=== PATIENT | female | born 1950 | race Caucasian/White ===

== ENCOUNTER → 2018-05-04 | Outpatient (CLI) | payer MEDICARE ==
--- NOTE | 2018-05-04 16:56 | BD ---
EXAMINATION TYPE: Axial Bone Density DATE OF EXAM: 05/04/2018 COMPARISON: NONE CLINICAL HISTORY: Height: 64 Weight: 231.8 FRAX RISK QUESTIONS: Alcohol (3 or more units per day): no Family History (Parent hip fracture): yes Glucocorticoids (More than 3mos): no (Ex: prednisone, prednisolone, methylprednisolone, dexamethasone, and hydrocortisone). History of Fracture in Adulthood: no Secondary Osteoporosis: 1. Type 1 Diabetes: no 2. Hyperthyroidism: no 3. Menopause before 45: no 4. Malnutrition: no 5. Chronic liver disease: no Rheumatoid Arthritis: no Current Tobacco Use: no RISK FACTORS HISTORY OF: Family History of Osteoporosis: yes Active: yes Diet low in dairy products/other sources of calcium: no Postmenopausal woman: after age 43 sometime Lost more than 2 inches in height since high school: no MEDICATIONS: eye drops, lipitor, aspirin, tenormin Additional History: EXAM MEASUREMENTS: Bone mineral densitometry was performed using the [employer] System. Bone mineral density as measured about the Lumbar spine is: ----- L1-L4(G/cm2): 1.422 T Score Values are as follows: ----- L2: 1.4 ----- L3: 3.2 ----- L4: 1.8 ----- L1-L4: 2.0 Bone mineral density has: decreased -2.1 % since study of: 03.26.2012 Bone mineral density about the R hip (g/cm2): 0.988 Bone mineral density about the L hip (g/cm2): 0.943 T Score values are as follows: -----R Neck: -0.4 -----L Neck: -0.7 -----R Total: 0.5 -----L Total: 0.3 Bone mineral density has: decreased -2.6 % since study of: 03.26.2012 IMPRESSION: Normal (Values between +1 and -1 indicate normal bone mass). Consider repeating this study in 5 year s or sooner if there is some new clinical indication. NOTE: T-SCORE=SD OF THE YOUNG ADULT MEAN.
--- NOTE | 2018-05-09 08:31 | MM ---
Reason for exam: screening (asymptomatic). Last mammogram was performed 1 year and 1 month ago. History: Patient is postmenopausal. Took hormonal contraceptives for 4 years beginning at age 22. Physical Findings: A clinical breast exam by your physician is recommended on an annual basis and results should be correlated with mammographic findings. MG 3D Screening Mammo W/Cad Bilateral CC and MLO view(s) were taken. Prior study comparison: April 10, 2017, bilateral MG 3d screening mammo w/cad. April 08, 2016, bilateral MG 3d screening mammo w/cad. There are scattered fibroglandular densities. There are benign appearing round calcifications bilaterally. No suspicious abnormality. No significant changes when compared with prior studies. ASSESSMENT: Benign, BI-RAD 2 RECOMMENDATION: Routine screening mammogram of both breasts in 1 year.
== END | disposition home or self-care (01) ==
LOC: RADMAMWWP 08:03
PROVIDERS: ATTEND Internal Medicine
DX: Z12.31 Encounter for screening mammogram for malignant neoplasm of breast (principal); M89.9 Disorder of bone, unspecified
CPT/HCPCS: 77063; 77067; 77080

== ENCOUNTER → 2019-05-07 | Outpatient (CLI) | payer MEDICARE ==
--- NOTE | 2019-05-09 13:24 | MM ---
Reason for exam: screening (asymptomatic). Last mammogram was performed 1 year ago. History: Patient is postmenopausal. Took hormonal contraceptives for 4 years beginning at age 22. Physical Findings: A clinical breast exam by your physician is recommended on an annual basis and results should be correlated with mammographic findings. MG 3D Screening Mammo W/Cad Bilateral CC and MLO view(s) were taken. Prior study comparison: May 04, 2018, bilateral MG 3d screening mammo w/cad. April 10, 2017, bilateral MG 3d screening mammo w/cad. There are scattered fibroglandular densities. Benign appearing bilateral calcifications. No suspicious abnormality. No significant changes when compared with prior studies. ASSESSMENT: Benign, BI-RAD 2 RECOMMENDATION: Routine screening mammogram of both breasts in 1 year.
== END | disposition home or self-care (01) ==
LOC: RADMAMWWP 09:04
PROVIDERS: ATTEND Internal Medicine
DX: Z12.31 Encounter for screening mammogram for malignant neoplasm of breast (principal)
CPT/HCPCS: 77063; 77067

== ENCOUNTER → 2021-01-06 | Outpatient (CLI) | payer MEDICARE ==
--- NOTE | 2021-01-08 11:43 | MM ---
Reason for exam: screening (asymptomatic). Last mammogram was performed 1 year and 8 months ago. History: Patient is postmenopausal. Took hormonal contraceptives for 4 years beginning at age 22. Physical Findings: A clinical breast exam by your physician is recommended on an annual basis and results should be correlated with mammographic findings. MG 3D Screening Mammo W/Cad Bilateral CC and MLO view(s) were taken. XCCL view(s) were taken of the left breast. Prior study comparison: May 07, 2019, bilateral MG 3d screening mammo w/cad. May 04, 2018, bilateral MG 3d screening mammo w/cad. There are scattered fibroglandular densities. No significant changes when compared with prior studies. ASSESSMENT: Benign, BI-RAD 2 RECOMMENDATION: Routine screening mammogram of both breasts in 1 year.
== END | disposition home or self-care (01) ==
LOC: RADMAMWWP 08:09
PROVIDERS: ATTEND Family Medicine
DX: Z12.31 Encounter for screening mammogram for malignant neoplasm of breast (principal); Z79.3 Long term (current) use of hormonal contraceptives; Z78.0 Asymptomatic menopausal state
CPT/HCPCS: 77063; 77067

== ENCOUNTER 2021-02-25 10:33 | Inpatient (IN) | payer MEDICARE ==
--- NOTE | 2021-02-25 11:54 | XR ---
EXAMINATION TYPE: XR chest 1V portable DATE OF EXAM: 02/25/2021 Comparison: 03/02/2011 Clinical History: 70-year-old female cough, dizziness, Suspected COVID-19 pneumonia Findings: The cardiomediastinal silhouette, aorta, and pulmonary vasculature are within normal limits. Patchy bilateral opacities, greatest in the mid and lower lungs, right greater than left. Impression: Patchy bilateral COVID infiltrates.
[2021-02-25 11:58] LABS: Basophils % (A) 0 %; Eosinophils % (A) 0 %; HCT 42.8 % (34.0-46.0); HGB 14.9 gm/dL (11.4-16.0); Hyperchromasia Slight; Lymphocytes # (A) 0.8 k/uL (1.0-4.8); Lymphocytes % (A) 7 %; MCH 32.2 pg (25.0-35.0); MCHC 34.9 g/dL (31.0-37.0); MCV 92.5 fL (80.0-100.0); Mean Platelet Volume 7.6; Monocytes # (A) 0.7 k/uL (0-1.0); Monocytes % (A) 6 %; Neutrophils # (A) 10.3 k/uL (1.3-7.7); Neutrophils % (A) 85 %; Platelet Count 466 k/uL (150-450); Poikilocytosis Slight; RBC 4.63 m/uL (3.80-5.40); RDW 13.2 % (11.5-15.5); WBC 12.2 k/uL (3.8-10.6)
[2021-02-25 12:18] LABS: INR 1.1 (<1.2); Partial Thromboplastin Time 21.1 sec (22.0-30.0); Prothrombin Time 11.3 sec (9.0-12.0)
--- NOTE | 2021-02-25 12:31 | ED ---
General Adult HPI - General Chief complaint: Upper Respiratory Infection Stated complaint: covid+, worsening symptoms Time Seen by Provider: 02/25/21 10:45 Source: patient, RN notes reviewed, old records reviewed Mode of arrival: ambulatory Limitations: no limitations - History of Present Illness Initial comments: Patient is a 70-year-old female with history of heart disease, presenting to the emergency Department with complaints of worsening shortness of breath, fatigue. She was diagnosed with Covid last week, she's been having symptoms approximately 8-9 days. She did have a couple fevers last week but none recently. She denies history of COPD, she is a nonsmoker. Her biggest complaint is his shortness of breath, she does have a mild cough this been continuous over the past 3 weeks. Her appetite has been very low, she's been trying to drink fluids. Some mild nausea intermittently, no vomiting, no diarrhea. She denies history of blood clots, she is not on blood thinners. Patient has no further complaints at this time. Upon arrival to the ER, she is a 88% on room air, rest of vitals within normal limits. - Related Data Home Medications Medication Instructions Recorded Confirmed Albuterol Sulfate [Albuterol 2 puff INHALATION QID PRN 02/25/21 02/25/21 Sulfate Hfa] Aspirin EC [Ecotrin Low Dose] 81 mg PO HS 02/25/21 02/25/21 Atorvastatin [Lipitor] 20 mg PO HS 02/25/21 02/25/21 Flarex 0.1% Opth Solution 1 drop BOTH EYES TUTHSA 02/25/21 02/25/21 Timolol 0.5% Ophth Soln [Timoptic 1 drop BOTH EYES DAILY 02/25/21 02/25/21 0.5% Ophth Soln] atenoloL [Tenormin] 25 mg PO HS 02/25/21 02/25/21 atenoloL [Tenormin] 50 mg PO DAILY 02/25/21 02/25/21 Allergies Allergy/AdvReac Type Severity Reaction Status Date / Time Sulfa (Sulfonamide Allergy Rash/Hives Verified 02/25/21 13:14 Antibiotics) Review of Systems ROS Statement: Those systems with pertinent positive or pertinent negative responses have been documented in the HPI. ROS Other: All systems not noted in ROS Statement are negative. Past Medical History Past Medical History: Coronary Artery Disease (CAD), Eye Disorder Additional Past Medical History / Comment(s): Covid. History of Any Multi-Drug Resistant Organisms: None Reported Past Surgical History: Cholecystectomy, Heart Catheterization With Stent Past Psychological History: No Psychological Hx Reported Smoking Status: Never smoker Past Alcohol Use History: None Reported Past Drug Use History: None Reported General Exam - General Exam Comments Initial Comments: GENERAL: Patient is well-developed and well-nourished. Patient is nontoxic and in no acute distress. HEAD: Atraumatic, normocephalic. EYES: Pupils equal round and reactive to light, extraocular movements intact, sclera anicteric, conjunctiva are normal. Eyelids were unremarkable. ENT: Nares patent, oropharynx clear without exudates. Moist mucous membranes. NECK: Normal range of motion, supple without lymphadenopathy or JVD. LUNGS: Unlabored respirations, decreased sounds bilaterally, No wheezes rales or rhonchi. HEART: Regular rate and rhythm without murmurs, rubs or gallops. ABDOMEN: Soft, nontender, normoactive bowel sounds. No guarding, no rebound. No masses appreciated. MUSCULOSKELETAL: Normal extremities with adequate strength and normal range of motion, no pitting or edema. No clubbing or cyanosis. NEUROLOGICAL: Patient is alert and oriented x 3. Motor and sensory are also intact. Cranial nerves II through XII grossly intact. Symmetrical smile. Normal speech, normal gait. PSYCH: Normal mood, normal affect. SKIN: Warm, Dry, normal turgor, no rashes or lesions noted. Limitations: no limitations Course Vital Signs 02/25/21 02/25/21 10:34 11:52 Temperature 96.0 F L Pulse Rate 71 57 L Respiratory 19 18 Rate Blood Pressure 141/67 156/55 O2 Sat by Pulse 88 L 93 L Oximetry EKG Findings - EKG Comments: EKG Findings:: Normal sinus rhythm, normal ECG, no signs of acute process. Ventricular rate 64, AR interval 154, QTC 436. Medical Decision Making - Medical Decision Making Patient is a 70-year-old female with heart disease, presenting with worsening shortness of breath over the past week. She was diagnosed with Covid last week, symptoms started a few days prior. She did arrive 88% in room air, rest of vitals normal. EKG shows normal sinus rhythm. Chest x-ray shows patchy bilateral Covid infiltrates. Labs are stable. Patient will be admitted for Covid pneumonia, hypoxia. She has been comfortable on 3 L at 93%. Dr. Quezada is accepting, pulmonary on consult. Case discussed with Dr. Ortiz. - Lab Data Result diagrams: 02/25/21 11:36 02/25/21 11:36 Lab Results 02/25/21 02/25/21 02/25/21 Range/Units 11:36 11:36 11:36 WBC 12.2 H (3.8-10.6) k/uL RBC 4.63 (3.80-5.40) m/uL Hgb 14.9 (11.4-16.0) gm/dL Hct 42.8 (34.0-46.0) % MCV 92.5 (80.0-100.0) fL MCH 32.2 (25.0-35.0) pg MCHC 34.9 (31.0-37.0) g/dL RDW 13.2 (11.5-15.5) % Plt Count 466 H (150-450) k/uL MPV 7.6 Neutrophils % 85 % Lymphocytes % 7 % Monocytes % 6 % Eosinophils % 0 % Basophils % 0 % Neutrophils # 10.3 H (1.3-7.7) k/uL Lymphocytes # 0.8 L (1.0-4.8) k/uL Monocytes # 0.7 (0-1.0) k/uL Eosinophils # 0.0 (0-0.7) k/uL Basophils # 0.0 (0-0.2) k/uL Hyperchromasia Slight Poikilocytosis Slight PT 11.3 (9.0-12.0) sec INR 1.1 (<1.2) APTT 21.1 L (22.0-30.0) sec Sodium 139 (137-145) mmol/L Potassium 3.9 (3.5-5.1) mmol/L Chloride 106 (98-107) mmol/L Carbon Dioxide 25 (22-30) mmol/L Anion Gap 8 mmol/L BUN 20 H (7-17) mg/dL Creatinine 0.56 (0.52-1.04) mg/dL Est GFR (CKD-EPI)AfAm >90 (>60 ml/min/1.73 sqM) Est GFR (CKD-EPI)NonAf >90 (>60 ml/min/1.73 sqM) Glucose 110 H (74-99) mg/dL Plasma Lactic Acid Garret (0.7-2.0) mmol/L Calcium 8.9 (8.4-10.2) mg/dL Magnesium 2.1 (1.6-2.3) mg/dL Total Bilirubin 1.1 (0.2-1.3) mg/dL AST 50 H (14-36) U/L ALT 28 (4-34) U/L Alkaline Phosphatase 60 (38-126) U/L Troponin I (0.000-0.034) ng/mL C-Reactive Protein 15.0 H (<1.0) mg/dL Total Protein 5.8 L (6.3-8.2) g/dL Albumin 2.7 L (3.5-5.0) g/dL 02/25/21 02/25/21 Range/Units 11:36 11:36 WBC (3.8-10.6) k/uL RBC (3.80-5.40) m/uL Hgb (11.4-16.0) gm/dL Hct (34.0-46.0) % MCV (80.0-100.0) fL MCH (25.0-35.0) pg MCHC (31.0-37.0) g/dL RDW (11.5-15.5) % Plt Count (150-450) k/uL MPV Neutrophils % % Lymphocytes % % Monocytes % % Eosinophils % % Basophils % % Neutrophils # (1.3-7.7) k/uL Lymphocytes # (1.0-4.8) k/uL Monocytes # (0-1.0) k/uL Eosinophils # (0-0.7) k/uL Basophils # (0-0.2) k/uL Hyperchromasia Poikilocytosis PT (9.0-12.0) sec INR (<1.2) APTT (22.0-30.0) sec Sodium (137-145) mmol/L Potassium (3.5-5.1) mmol/L Chloride (98-107) mmol/L Carbon Dioxide (22-30) mmol/L Anion Gap mmol/L BUN (7-17) mg/dL Creatinine (0.52-1.04) mg/dL Est GFR (CKD-EPI)AfAm (>60 ml/min/1.73 sqM) Est GFR (CKD-EPI)NonAf (>60 ml/min/1.73 sqM) Glucose (74-99) mg/dL Plasma Lactic Acid Garret 1.7 (0.7-2.0) mmol/L Calcium (8.4-10.2) mg/dL Magnesium (1.6-2.3) mg/dL Total Bilirubin (0.2-1.3) mg/dL AST (14-36) U/L ALT (4-34) U/L Alkaline Phosphatase (38-126) U/L Troponin I 0.017 (0.000-0.034) ng/mL C-Reactive Protein (<1.0) mg/dL Total Protein (6.3-8.2) g/dL Albumin (3.5-5.0) g/dL Disposition Clinical Impression: Pneumonia due to COVID-19 virus, Hypoxia Disposition: ADMITTED IP TO THIS [facility] Condition: Stable Referrals: Abigail Morales MD [Primary Care Provider] - 1-2 days Decision Date: 02/25/21 Decision Time: 13:24
[2021-02-25 12:35] LABS: ALT 28 U/L (4-34); African American GFR (CKD) >90 (>60 ml/min/1.73 sqM); Albumin 2.7 g/dL (3.5-5.0); Anion Gap 8 mmol/L; Blood Urea Nitrogen 20 mg/dL (7-17); Calcium 8.9 mg/dL (8.4-10.2); Carbon Dioxide 25 mmol/L (22-30); Chloride 106 mmol/L (98-107); Glucose 110 mg/dL (74-99); Magnesium 2.1 mg/dL (1.6-2.3); Non-African American GFR(CKD) >90 (>60 ml/min/1.73 sqM); Sodium 139 mmol/L (137-145); Total Bilirubin 1.1 mg/dL (0.2-1.3); Total Protein 5.8 g/dL (6.3-8.2)
[2021-02-25 12:36] LABS: Potassium 3.9 mmol/L (3.5-5.1)
[2021-02-25 12:37] LABS: AST 50 U/L (14-36); Alkaline Phosphatase 60 U/L (38-126)
[2021-02-25] MEDS ORDERED: ACETAMINOPHEN TAB 325 MG TAB PO PRN (13:20)
[2021-02-25] MEDS ORDERED: IBUPROFEN 400 MG TAB PO PRN (13:20)
[2021-02-25] MEDS ORDERED: NALOXONE 0.4 MG/ML 1 ML VIAL IV PRN (13:20)
[2021-02-25] MEDS ORDERED: ONDANSETRON 4 MG/2 ML VIAL IVP PRN (13:20)
[2021-02-25] MEDS: SODIUM CHLORIDE 0.9% 1,000 ML IV SCH (15:18)
--- NOTE | 2021-02-25 16:10 | P.HPIM ---
History of Present Illness This is a pleasant 70 years old female with past medical history of coronary artery disease status post stenting, hypertension Presents because of dyspnea and coughing. Patient states that she's been having shortness of breath since earlier of the muscle about 3 weeks ago. Last week she started having back and she was tested positive for Covid Today her husbandis that she almost passed out during a severe bout of coughing so she came to the emergency room. She denies chest pain or abdominal pain or diarrhea. No headache or weakness. Covid vaccine Pfizer 2 shots on June and July of this year. She does not smoke or drink. No illicit drugs. On the presentation she is hypothermic 96. Hypoxic with oxygen saturation 88% on room air. Improve to 90% on 5 with oxygen Left showing mild leukocytosis of 12.2. Rest of CBC, INR, BMP liver enzymes and troponin were unremarkable. EKG showing normal sinus rhythm at [address]-T changes and QTC is 499. Chest x-ray: Bilateral infiltrates Review of Systems CONSTITUTIONAL: No fever, no malaise, no fatigue. HEENT: No recent visual problems or hearing problems. Denied any sore throat. CARDIOVASCULAR: No orthopnea, PND, no palpitations, no syncope. PULMONARY: No chest wall tenderness, no hemoptysis. GASTROINTESTINAL: No diarrhea, no nausea, no vomiting, no abdominal pain. Normoactive bowel sounds. NEUROLOGICAL: No headaches, no weakness, no numbness. HEMATOLOGICAL: Denies any bleeding or petechiae. GENITOURINARY: Denies any burning micturition, frequency, or urgency. MUSCULOSKELETAL/RHEUMATOLOGICAL: Denies any joint pain, swelling, or any muscle pain. ENDOCRINE: Denies any polyuria or polydipsia. Past Medical History Past Medical History: Coronary Artery Disease (CAD), Eye Disorder Additional Past Medical History / Comment(s): Covid. History of Any Multi-Drug Resistant Organisms: None Reported Past Surgical History: Cholecystectomy, Heart Catheterization With Stent Past Psychological History: No Psychological Hx Reported Smoking Status: Never smoker Past Alcohol Use History: None Reported Past Drug Use History: None Reported Medications and Allergies Home Medications Medication Instructions Recorded Confirmed Type Albuterol Sulfate [Albuterol 2 puff INHALATION QID PRN 02/25/21 02/25/21 History Sulfate Hfa] Aspirin EC [Ecotrin Low Dose] 81 mg PO HS 02/25/21 02/25/21 History Atorvastatin [Lipitor] 20 mg PO HS 02/25/21 02/25/21 History Flarex 0.1% Opth Solution 1 drop BOTH EYES TUTHSA 02/25/21 02/25/21 History Timolol 0.5% Ophth Soln [Timoptic 1 drop BOTH EYES DAILY 02/25/21 02/25/21 History 0.5% Ophth Soln] atenoloL [Tenormin] 25 mg PO HS 02/25/21 02/25/21 History atenoloL [Tenormin] 50 mg PO DAILY 02/25/21 02/25/21 History Allergies Allergy/AdvReac Type Severity Reaction Status Date / Time Sulfa (Sulfonamide Allergy Rash/Hives Verified 02/25/21 13:14 Antibiotics) Physical Exam Vitals: Vital Signs Temp Pulse Resp BP Pulse Ox 02/25/21 15:25 70 18 128/64 90 L 02/25/21 11:52 57 L 18 156/55 93 L 02/25/21 10:34 96.0 F L 71 19 141/67 88 L Intake and Output 02/25/21 02/25/21 02/25/21 06:59 14:59 22:59 Other: Weight 95.254 kg GENERAL: The patient is alert and oriented x3, not in any acute distress. Well developed, well nourished. HEENT: Pupils are round and equally reacting to light. EOMI. No scleral icterus. No conjunctival pallor. Normocephalic, atraumatic. No pharyngeal erythema. No thyromegaly. CARDIOVASCULAR: S1 and S2 present. No murmurs, rubs, or gallops. -PULMONARY: Chest is clear to auscultation, no wheezing laterally crepitation ABDOMEN: Soft, nontender, nondistended, normoactive bowel sounds. No palpable organomegaly. MUSCULOSKELETAL: No joint swelling or deformity. EXTREMITIES: No cyanosis, clubbing, or pedal edema. NEUROLOGICAL: Gross neurological examination did not reveal any focal deficits. SKIN: No rashes. no petechiae. Results CBC & Chem 7: 02/25/21 11:36 02/25/21 11:36 Labs: Abnormal Lab Results - Last 24 Hours (Table) 02/25/21 02/25/21 02/25/21 Range/Units 11:36 11:36 11:36 WBC 12.2 H (3.8-10.6) k/uL Plt Count 466 H (150-450) k/uL Neutrophils # 10.3 H (1.3-7.7) k/uL Lymphocytes # 0.8 L (1.0-4.8) k/uL APTT 21.1 L (22.0-30.0) sec BUN 20 H (7-17) mg/dL Glucose 110 H (74-99) mg/dL AST 50 H (14-36) U/L C-Reactive Protein 15.0 H (<1.0) mg/dL Total Protein 5.8 L (6.3-8.2) g/dL Albumin 2.7 L (3.5-5.0) g/dL Assessment and Plan Assessment: Acute bilateral covid With pneumonia acute hypoxic respiratory failure Increased inflammatory markers History of coronary artery disease status post stenting Hypertension Plan: this is a pleasant 70 years old female who presents with Covid pneumonia Continue with oxygen as needed and vitamins, vitamin C, D and zinc. Dexamethasone Pulmonary consult monitor inflammatory markers, poorcalcitonin and d-dimer Labs and medication were reviewed.. Continue same treatment. Continue with symptomatic treatment. Resume home medication. Monitor lytes and vitals. DVT and GI prophylaxis. Further recommendations depends on the clinical course of the patient DVT prophylaxis: Subcutan Lovenox GI Prophylaxis: Pepcid PT/OT: Pending Prognosis is guarded
[2021-02-25] MEDS: CHOLECALCIFEROL 25 MCG (1000 IU) TABLET PO SCH (18:03)
[2021-02-25] MEDS: DEXAMETHASONE SOD PHOSPHATE 10 MG/ML 1 ML VIAL IVP SCH (18:03)
[2021-02-25] MEDS: ZINC SULFATE 220 MG CAP PO SCH (18:03)
[2021-02-25] MEDS: ASCORBIC ACID 500 MG TAB PO SCH (18:03)
[2021-02-25] MEDS: ENOXAPARIN 40 MG/0.4 ML SYRINGE SQ SCH (18:04)
[2021-02-25] MEDS: guaiFENesin-DM 100-10MG/5ML 10 ML CUP PO SCH (18:08)
[2021-02-25 19:07] LABS: C Reactive Protein 14.4 mg/dL (<1.0)
[2021-02-25] MEDS ORDERED: hydrALAZINE HCL 25 MG TAB PO PRN (19:56)
[2021-02-25] MEDS: amLODIPine 5 MG TAB PO SCH (20:14)
[2021-02-26] MEDS: SODIUM CHLORIDE 0.9% 1,000 ML IV SCH ×2 (02:56→18:51)
[2021-02-26] MEDS ORDERED: FAMOTIDINE 20 MG TAB PO SCH (09:00)
[2021-02-26] MEDS: ENOXAPARIN 40 MG/0.4 ML SYRINGE SQ SCH (10:21)
[2021-02-26] MEDS: ASCORBIC ACID 500 MG TAB PO SCH (10:22)
[2021-02-26] MEDS: ZINC SULFATE 220 MG CAP PO SCH (10:22)
[2021-02-26] MEDS: CHOLECALCIFEROL 25 MCG (1000 IU) TABLET PO SCH (10:22)
[2021-02-26] MEDS: amLODIPine 5 MG TAB PO SCH ×2 (10:23→21:03)
[2021-02-26] MEDS: TIMOLOL 0.5% OPHTH DROPS 5 ML BTL BOTH EYES SCH (11:49)
[2021-02-26] MEDS: DEXAMETHASONE SOD PHOSPHATE 10 MG/ML 1 ML VIAL IVP SCH (11:49)
[2021-02-26] MEDS: guaiFENesin-DM 100-10MG/5ML 10 ML CUP PO SCH ×3 (11:49→17:53)
[2021-02-26] MEDS: INSULIN ASPART (NovoLOG) 100 UNIT/ML VIAL SQ SCH ×3 (11:53→21:03)
[2021-02-26 11:59] LABS: African American GFR (CKD) 105.5 (60.0-200.0); Anion Gap 15.1 mmol/L (4.00-12.00); BUN/Creat Ratio 34.67 Ratio (12.00-20.00); Blood Urea Nitrogen 20.8 mg/dL (9.0-27.0); Calcium 9.1 mg/dL (8.7-10.3); Carbon Dioxide 23.9 mmol/L (21.6-31.8); Non-African American GFR(CKD) 91.1 (60.0-200.0); Potassium 4.4 mmol/L (3.5-5.5)
[2021-02-26 12:07] LABS: Basophils # (A) 0.01 X 10*3/uL (0.00-0.10); Basophils % (A) 0.1 %; Eosinophils # (A) 0 X 10*3/uL (0.04-0.35); Eosinophils % (A) 0 %; HCT 43.3 % (37.2-46.3); HGB 14.4 g/dL (12.0-15.0); Lymphocytes # (A) 0.87 X 10*3/uL (0.90-5.00); Lymphocytes % (A) 12.4 %; MCH 31.2 pg (27.0-32.0); MCHC 33.3 g/dL (32.0-37.0); MCV 93.9 fL (80.0-97.0); Mean Platelet Volume 9.9 fL (9.5-12.2); Monocytes # (A) 0.47 X 10*3/uL (0.20-1.00); Monocytes % (A) 6.7 %; Neutrophils # (A) 5.55 X 10*3/uL (1.80-7.70); Neutrophils % (A) 79.5 %; Platelet Count 437 X 10*3/uL (140-440); RBC 4.61 X 10*6/uL (4.10-5.20); RDW 12.8 % (11.5-14.5); WBC 6.99 X 10*3/uL (4.50-10.00)
--- NOTE | 2021-02-26 12:27 | P.CNPUL ---
History of Present Illness Consult date: 02/26/21 Reason for consult: dyspnea History of present illness: 68-year-old female patient hospitalized for COVID-19 related pneumonia and respiratory distress. She is known to have CAD, previous coronary stenting and hypertension. The patient started having increased dyspnea and cough and she's been apparently having shortness of breath for the past 3 weeks. Last week, her testing came back positive for COVID-19. Her cough was getting more vigorous and the patient was almost having near syncope with ongoing cough. For that reason she came into the hospital. Her chest x-ray showed diffuse but the pulmonary infiltrates consistent with COVID-19 related pneumonia. Note that the patient has been vaccinated with 5/3 and she has taken 2 shots back in June and July 2020. At the time of admission, the patient was hypoxic. She was placed on 5 L of oxygen by nasal cannula and her pulse ox is currently around 90%. Ferritin from a marker showed a d-dimer of 20.6 and her CRP level was at 14.4 with an LDH level of 1235 at a time of admission. Rest of the blood work was essentially unremarkable. White count with at 6.9 with a hemoglobin of 14.4 and the patiet had lymphopenia. The electrodes are all within normal limits. For now the patient is on Decadron 6 mg IV every 24 hours. She has been also placed on Lovenox 40 mg subcu for DVT prophylaxis. Outpatient medications have been RESUMED. Her current pulse ox is 91% on 5 L about 2 by nasal cannula. No previous history of lung disease. She is a nonsmoker. Review of Systems Constitutional: Reports fatigue, Reports fever, Reports weakness Eyes: denies as per HPI, denies blurred vision, denies bulging eye, denies decreased vision, denies diplopia, denies discharge, denies dry eye, denies irritation, denies itching, denies pain, denies photophobia, denies loss of peripheral vision, denies loss of vision, denies tunnel vision/blind spots Ears: deny: decreased hearing, ear discharge, earache, tinnitus Ears, nose, mouth and throat: Reports as per HPI Breasts: absent: as per HPI, change in shape, gynecomastia, masses, nipple di scharge, pain, skin changes, swelling Cardiovascular: Reports decreased exercise tolerance, Reports dyspnea on exertion Respiratory: Reports cough, Reports dyspnea Gastrointestinal: Reports as per HPI Genitourinary: Reports as per HPI Menstruation: Reports as per HPI Musculoskeletal: Reports as per HPI Musculoskeletal: absent: ankle pain, ankle stiffness, ankle swelling Integumentary: Reports as per HPI Neurological: Reports as per HPI Psychiatric: Reports as per HPI Endocrine: Reports as per HPI Hematologic/Lymphatic: Reports as per HPI Allergic/Immunologic: Reports as per HPI Past Medical History Past Medical History: Coronary Artery Disease (CAD), Eye Disorder Additional Past Medical History / Comment(s): Covid. History of Any Multi-Drug Resistant Organisms: None Reported Past Surgical History: Cholecystectomy, Heart Catheterization With Stent Date of Last Stent Placement:: [phone] Past Psychological History: No Psychological Hx Reported Smoking Status: Never smoker Past Alcohol Use History: None Reported Past Drug Use History: None Reported Medications and Allergies Home Medications Medication Instructions Recorded Confirmed Type Albuterol Sulfate [Albuterol 2 puff INHALATION QID PRN 02/25/21 02/25/21 History Sulfate Hfa] Aspirin EC [Ecotrin Low Dose] 81 mg PO HS 02/25/21 02/25/21 History Atorvastatin [Lipitor] 20 mg PO HS 02/25/21 02/25/21 History Flarex 0.1% Opth Solution 1 drop BOTH EYES TUTHSA 02/25/21 02/25/21 History Timolol 0.5% Ophth Soln [Timoptic 1 drop BOTH EYES DAILY 02/25/21 02/25/21 History 0.5% Ophth Soln] atenoloL [Tenormin] 25 mg PO HS 02/25/21 02/25/21 History atenoloL [Tenormin] 50 mg PO DAILY 02/25/21 02/25/21 History Allergies Allergy/AdvReac Type Severity Reaction Status Date / Time Sulfa (Sulfonamide Allergy Rash/Hives Verified 02/25/21 13:14 Antibiotics) Physical Exam Vitals: Vital Signs Temp Pulse Pulse Pulse Resp BP BP 02/26/21 10:33 97.9 F 77 18 154/64 02/26/21 05:00 97.6 F 79 15 155/79 02/26/21 02:22 97.7 F 61 15 137/73 02/25/21 21:45 98.1 F 71 16 155/76 02/25/21 21:05 98.1 F 55 L 18 182/74 02/25/21 19:30 45 L 18 184/75 02/25/21 18:04 50 L 18 176/60 02/25/21 15:25 70 18 128/64 Pulse Ox 02/26/21 10:33 91 L 02/26/21 05:00 90 L 02/26/21 02:22 89 L 02/25/21 21:45 90 L 02/25/21 21:05 94 L 02/25/21 19:30 94 L 02/25/21 18:04 92 L 02/25/21 15:25 90 L Intake and Output 02/25/21 02/26/21 02/26/21 22:59 06:59 14:59 Intake Total 75 745 Balance 75 745 Intake: Intake, IV Titration 75 525 Amount Sodium Chloride 0.9% 1, 75 525 000 ml @ 75 mls/hr IV . [id number] [facility] Rx#:[id number] Oral 220 Other: Voiding Method Toilet Toilet # Voids 1 2 # Bowel Movements 1 Weight 95.254 kg patient's breathing is nonlabored and she is currently on 5 L about 2 by nasal cannula The patient appeared well nourished and normally developed. Vital signs as documented. Head exam is unremarkable. No scleral icterus or corneal arcus noted. Neck is without jugular venous distension, thyromegaly, or carotid bruits. Carotid upstrokes are brisk bilaterally. Lungs review crackles in the mid and lower lung fuller bilaterally Cardiac exam reveals the PMI to be normally sized and situated. Rhythm is regular. First and second heart sounds normal. No murmurs, rubs or gallops. Abdominal exam reveals normal bowel sounds, no masses, no organomegaly and no aortic enlargement. Extremities are nonedematous and both femoral and pedal pulses are normal.Examination of the skin revealed no evidence of significant rashes, suspicious appearing nevi or other concerning lesions.Neurologically, the patient is awake and alert and the patient does not have any focal neurological deficit. Cranial nerves are essen tially intact. Results - Laboratory Findings CBC and BMP: 02/26/21 07:49 02/26/21 07:49 PT/INR, D-dimer PT 11.3 sec (9.0-12.0) 02/25/21 11:36 INR 1.1 (<1.2) 02/25/21 11:36 D-Dimer 20.65 mg/L FEU (<0.60) H 02/26/21 07:49 Abnormal lab findings: Abnormal Labs 02/25/21 02/25/21 02/25/21 11:36 11:36 11:36 WBC 12.2 H Plt Count 466 H Immature Gran # Neutrophils # 10.3 H Lymphocytes # 0.8 L Eosinophils # APTT 21.1 L D-Dimer Sodium Anion Gap BUN 20 H BUN/Creatinine Ratio Glucose 110 H AST 50 H Lactate Dehydrogenase C-Reactive Protein 15.0 H Total Protein 5.8 L Albumin 2.7 L Coronavirus (PCR) 02/25/21 02/25/21 02/25/21 17:30 18:39 18:39 WBC Plt Count Immature Gran # Neutrophils # Lymphocytes # Eosinophils # APTT D-Dimer 2.71 H Sodium Anion Gap BUN BUN/Creatinine Ratio Glucose AST Lactate Dehydrogenase 1235 H C-Reactive Protein 14.4 H Total Protein Albumin Coronavirus (PCR) Detected A 02/26/21 02/26/21 02/26/21 07:49 07:49 07:49 WBC Plt Count Immature Gran # 0.09 H Neutrophils # Lymphocytes # 0.87 L Eosinophils # 0 L APTT D-Dimer 20.65 H Sodium 146 H Anion Gap 15.10 H BUN BUN/Creatinine Ratio 34.67 H Glucose 132 H AST Lactate Dehydrogenase C-Reactive Protein Total Protein Albumin Coronavirus (PCR) - Diagnostic Findings Chest x-ray: image reviewed Assessment and Plan Plan: 1 COVID-19 related pneumonia. Symptom onset was more than 3 weeks ago. Nevertheless, the patient got a pressure diagnosed on 02/18/2021. She is presented with hypoxic respiratory failure, shortness of breath and cough. She has diffuse bilateral pulmonary infiltrates. D-dimer is quite elevated. There is also elevation of the LDH and CRP. She is symptomatic currently on 5 L of oxygen by nasal cannula.note that this is a vaccinated individual and the patien t has taken 2 shots of Pfizer without the booster. 2 acute hypoxic respiratory failure secondary to above 3 elevation of the inflammatory markers including d-dimer probably related to above, rule out underlying DVT/pulmonary embolism 4 shortness of breath secondary to above 5 cough secondary to above 6 coronary artery disease 7 hyperlipidemia on Lipitor Plan Agree on Decadron 6 mg on a daily basis Continue Lovenox 40 mg subcu for DVT prophylaxis Check Doppler of the lower extremities and CT angios the chest to rule out DVT or pulmonary embolism Monitor inflammatory markers Resume home medications Multivitamins Titrate oxygen flow to maintain a saturation above 90%, currently on 5 L
--- NOTE | 2021-02-26 13:09 | US ---
EXAMINATION TYPE: US venous doppler duplex LE DATE OF EXAM: 02/26/2021 12:57 PM COMPARISON: Prev right leg only CLINICAL HISTORY: CoVID, elevated d-dimer. Elevated D-dimer SIDE PERFORMED: 06/04/2015 TECHNIQUE: The lower extremity deep venous system is examined utilizing real time linear array sonog greg with graded compression, doppler sonography and color-flow sonography. VESSELS IMAGED: Common Femoral Vein Deep Femoral Vein Greater Saphenous Vein * Femoral Vein Popliteal Vein Small Saphenous Vein * Proximal Calf Veins (* superficial vessels) Right Leg: Negative for DVT Left Leg: Negative for DVT IMPRESSION: Grayscale, color doppler, spectral doppler imaging performed of the deep veins of the lo wer extremities. There is normal flow, compressibility, vascular waveforms.
[2021-02-26] MEDS ORDERED: ENOXAPARIN 60 MG/0.6 ML SYRINGE SQ SCH (13:30)
--- NOTE | 2021-02-26 13:34 | P.PN ---
Subjective This is a pleasant 70 years old female with past medical history of coronary artery disease status post stenting, hypertension Presents because of dyspnea and coughing. Patient states that she's been having shortness of breath since earlier of the muscle about 3 weeks ago. Last week she started having back and she was tested positive for Covid Today her husbandis that she almost passed out during a severe bout of coughing so she came to the emergency room. She denies chest pain or abdominal pain or diarrhea. No headache or weakness. Covid vaccine Pfizer 2 shots on June and July of this year. She does not smoke or drink. No illicit drugs. On the presentation she is hypothermic 96. Hypoxic with oxygen saturation 88% on room air. Improve to 90% on 5 with oxygen Left showing mild leukocytosis of 12.2. Rest of CBC, INR, BMP liver enzymes and troponin were unremarkable. EKG showing normal sinus rhythm at [address]-T changes and QTC is 499. Chest x-ray: Bilateral infiltrates 02/26/2021 Patient breathing feels better per patient. She still on 5 L oxygen via nasal cannula. Personal vitals are stable. Blood pressure is 154/64. Leukocytosis is back to normal at 6.9. Pro-calcitonin is normal at 0.04. However her d-dimer is significantly improved up to 20. Pulmonary input is appreciated, CTA of the chest is ordered to rule out PE. Estimated continue with Lovenox. She remains on dexamethasone 6 mg and multiple vitamins C, D and zinc Objective - Vital Signs Vital signs: Vital Signs Temp 97.9 F 02/26/21 10:33 Pulse 77 02/26/21 10:33 Resp 18 02/26/21 10:33 BP 154/64 02/26/21 10:33 Pulse Ox 91 L 02/26/21 10:33 Intake & Output 02/25/21 02/26/21 02/26/21 18:59 06:59 18:59 Intake Total 820 Balance 820 Weight 95.254 kg 95.254 kg Intake: Intake, IV Titration 600 Amount Sodium Chloride 0.9% 1, 600 000 ml @ 75 mls/hr IV . [id number] [facility] Rx#:[id number] Oral 220 Other: Voiding Method Toilet Toilet # Voids 2 # Bowel Movements 1 - Exam GENERAL: The patient is alert and oriented x3, not in any acute distress. Well developed, well nourished. HEENT: Pupils are round and equally reacting to light. EOMI. No scleral icterus. No conjunctival pallor. Normocephalic, atraumatic. No pharyngeal erythema. No thyromegaly. CARDIOVASCULAR: S1 and S2 present. No murmurs, rubs, or gallops. -PULMONARY: Chest is clear to auscultation, no wheezing laterally crepitation ABDOMEN: Soft, nontender, nondistended, normoactive bowel sounds. No palpable organomegaly. MUSCULOSKELETAL: No joint swelling or deformity. EXTREMITIES: No cyanosis, clubbing, or pedal edema. NEUROLOGICAL: Gross neurological examination did not reveal any focal deficits. SKIN: No rashes. no petechiae. - Labs CBC & Chem 7: 02/26/21 07:49 02/26/21 07:49 Labs: Abnormal Lab Results - Last 24 Hours (Table) 02/25/21 02/25/21 02/25/21 Range/Units 17:30 18:39 18:39 Immature Gran # (0.00-0.04) X 10*3/uL Lymphocytes # (0.90-5.00) X 10*3/uL Eosinophils # (0.04-0.35) X 10*3/uL D-Dimer 2.71 H (<0.60) mg/L FEU Sodium (135-145) mmol/L Anion Gap (4.00-12.00) mmol/L BUN/Creatinine Ratio (12.00-20.00) Ratio Glucose (70-110) mg/dL Lactate Dehydrogenase 1235 H (313-618) U/L C-Reactive Protein 14.4 H (<1.0) mg/dL Coronavirus (PCR) Detected A (Not Detectd) 02/26/21 02/26/21 02/26/21 Range/Units 07:49 07:49 07:49 Immature Gran # 0.09 H (0.00-0.04) X 10*3/uL Lymphocytes # 0.87 L (0.90-5.00) X 10*3/uL Eosinophils # 0 L (0.04-0.35) X 10*3/uL D-Dimer 20.65 H (<0.60) mg/L FEU Sodium 146 H (135-145) mmol/L Anion Gap 15.10 H (4.00-12.00) mmol/L BUN/Creatinine Ratio 34.67 H (12.00-20.00) Ratio Glucose 132 H (70-110) mg/dL Lactate Dehydrogenase (313-618) U/L C-Reactive Protein (<1.0) mg/dL Coronavirus (PCR) (Not Detectd) Assessment and Plan Assessment: Acute bilateral covid With pneumonia acute hypoxic respiratory failure Increased inflammatory markers Elevated d-dimer, rule out PE History of coronary artery disease status post stenting Hypertension Plan: this is a pleasant 70 years old female who presents with Covid pneumonia Continue with oxygen as needed and vitamins, vitamin C, D and zinc. Dexamethasone Pulmonary consult monitor inflammatory markers, and d-dimer Follow-up CTA of the chest Labs and medication were reviewed.. Continue same treatment. Continue with symptomatic treatment. Resume home medication. Monitor lytes and vitals. DVT and GI prophylaxis. Further recommendations depends on the clinical course of the patient DVT prophylaxis: Subcutan Lovenox GI Prophylaxis: Pepcid PT/OT: Pending Prognosis is guarded
--- NOTE | 2021-02-26 16:24 | CT ---
EXAMINATION TYPE: CT angio chest DATE OF EXAM: 02/26/2021 COMPARISON: 02/25/2021 HISTORY: 70-year-old female Shortness of breath. TECHNIQUE: Contiguous axial scanning of the chest performed with IV Contrast, patient injected with 1 00 mL of Isovue 370. Coronal/sagittal MIP reconstructions performed. CT DLP: 437 mGycm Automated exposure control for dose reduction was used. FINDINGS: Heart normal size without pericardial effusion. No flattening of the interventricular septum. Scatter ed three-vessel coronary artery calcifications which are remarkable for coronary artery disease. Aorta normal caliber with a bovine configuration to the aortic arch. Mild atherosclerotic arch calcif ications. There is a prominent upper right paratracheal lymph node measuring 1.1 cm. Prominent right hilar lymp h node measures 1.5 cm. Left hilar nodes measure up to 1.3 cm. Subcarinal nodes measure up to 1.1 cm. Satisfactory opacification of pulmonary to systemic no pulmonary embolus is seen. Patchy and confluent airspace disease and groundglass greatest in the midlungs. These have a more per ipheral and peribronchial vascular distribution in both the upper and lower lungs. Tiny hiatal hernia. Visualized upper abdomen otherwise shows no gross abnormality. Bones: [facility] within the mid to lower thoracic spine. IMPRESSION: 1. NO PULMONARY EMBOLUS IS SEEN. 2. EXTENSIVE PATCHY AND CONFLUENT AREAS OF GROUNDGLASS AND AIRSPACE DISEASE SUSPICIOUS FOR BILATERAL COVID PNEUMONIA. CLINICALLY CORRELATE. 3. MILD MEDIASTINAL AND HILAR LYMPHADENOPATHY MEASURING UP TO 1.5 CM LIKELY REACTIVE. FOLLOW-UP IN 3 MONTHS TO ENSURE INVOLUTION.
[2021-02-26 17:04] LABS: Glucose,Whole Blood 129 mg/dL (75-99)
[2021-02-26 20:19] LABS: Glucose,Whole Blood 151 mg/dL (75-99)
[2021-02-26] MEDS: ATORVASTATIN 20 MG TAB PO SCH (21:03)
[2021-02-26] MEDS: ASPIRIN 81 MG PO SCH (21:03)
[2021-02-26] MEDS: atenoloL 25 MG TAB PO SCH (21:03)
[2021-02-27] MEDS: guaiFENesin-DM 100-10MG/5ML 10 ML CUP PO SCH ×4 (00:22→22:49)
[2021-02-27] MEDS: SODIUM CHLORIDE 0.9% 1,000 ML IV SCH ×2 (04:37→17:26)
[2021-02-27 07:09] LABS: Glucose,Whole Blood 107 mg/dL (75-99)
[2021-02-27] MEDS ORDERED: atenoloL 50 MG TAB PO SCH (09:00)
[2021-02-27] MEDS ORDERED: ENOXAPARIN 40 MG/0.4 ML SYRINGE SQ SCH (09:00)
[2021-02-27] MEDS: INSULIN ASPART (NovoLOG) 100 UNIT/ML VIAL SQ SCH ×4 (09:06→20:33)
[2021-02-27] MEDS: DEXAMETHASONE SOD PHOSPHATE 10 MG/ML 1 ML VIAL IVP SCH (10:00)
[2021-02-27] MEDS: ENOXAPARIN 40 MG/0.4 ML SYRINGE SQ SCH (10:28)
[2021-02-27] MEDS: CHOLECALCIFEROL 25 MCG (1000 IU) TABLET PO SCH (10:29)
[2021-02-27] MEDS: ASCORBIC ACID 500 MG TAB PO SCH (10:29)
[2021-02-27] MEDS: amLODIPine 5 MG TAB PO SCH ×2 (10:30→20:33)
[2021-02-27] MEDS: ZINC SULFATE 220 MG CAP PO SCH (10:30)
[2021-02-27] MEDS: TIMOLOL 0.5% OPHTH DROPS 5 ML BTL BOTH EYES SCH (10:34)
[2021-02-27] MEDS: FLUOROMETHOLONE 0.1% BOTH EYES SCH (10:37)
--- NOTE | 2021-02-27 11:58 | P.PN ---
Subjective Progress Note Date: 02/27/21 On today's evaluation of 02/27/2021, the patient is still on 5 L of oxygen by nasal cannula as the patient is being treated for COVID-19 related pneumonia. As part of further workup, her d-dimer was elevated and for that reason, a Doppler of the lower extremity was done that showed no evidence of any DVT. CT angiogram showed no the 70 pulmonary embolism and was consistent essentially with COVID-19 associated pneumonia. For now, the patient remains on Lovenox 40 mg subcu for DVT prophylaxis. He is also on Decadron 6 mg IV every 24 hours and she is outside the window for Remdesivir. She is afebrile. She is hemodynamically stable. She is receiving IV fluids. No significant leukocytosis. Blood sugars under good control for now. She is still cough and that she gets short of breath with limited amount of activity. There is extensive consolidation on the CAT scan of the chest related to pneumonia. The patient is a previously vaccinated individual. Objective - Vital Signs Vital signs: Vital Signs Temp 97.5 F L 02/27/21 11:34 Pulse 51 L 02/27/21 11:34 Resp 20 02/27/21 11:34 BP 104/68 02/27/21 11:34 Pulse Ox 91 L 02/27/21 11:34 Intake & Output 02/26/21 02/27/21 02/27/21 18:59 06:59 18:59 Other: Voiding Method Toilet # Voids 3 1 - Exam patient's breathing is nonlabored and she is currently on 5 L about 2 by nasal cannula The patient appeared well nourished and normally developed. Vital signs as documented. Head exam is unremarkable. No scleral icterus or corneal arcus noted. Neck is without jugular venous distension, thyromegaly, or carotid bruits. Carotid upstrokes are brisk bilaterally. Lungs review crackles in the mid and lower lung fuller bilaterally Cardiac exam reveals the PMI to be normally sized and situated. Rhythm is regular. First and second heart sounds normal. No murmurs, rubs or gallops. Abdominal exam reveals normal bowel sounds, no masses, no organomegaly and no aortic enlargement. Extremities are nonedema tous and both femoral and pedal pulses are normal.Examination of the skin revealed no evidence of significant rashes, suspicious appearing nevi or other concerning lesions.Neurologically, the patient is awake and alert and the patient does not have any focal neurological deficit. Cranial nerves are essentially intact - Labs CBC & Chem 7: 02/26/21 07:49 02/26/21 07:49 Labs: Abnormal Lab Results - Last 24 Hours (Table) 02/26/21 02/26/21 02/26/21 Range/Units 07:49 07:49 16:44 Immature Gran # 0.09 H (0.00-0.04) X 10*3/uL Lymphocytes # 0.87 L (0.90-5.00) X 10*3/uL Eosinophils # 0 L (0.04-0.35) X 10*3/uL Sodium 146 H (135-145) mmol/L Anion Gap 15.10 H (4.00-12.00) mmol/L BUN/Creatinine Ratio 34.67 H (12.00-20.00) Ratio Glucose 132 H (70-110) mg/dL POC Glucose (mg/dL) 129 H (75-99) mg/dL 02/26/21 02/27/21 Range/Units 20:15 06:59 Immature Gran # (0.00-0.04) X 10*3/uL Lymphocytes # (0.90-5.00) X 10*3/uL Eosinophils # (0.04-0.35) X 10*3/uL Sodium (135-145) mmol/L Anion Gap (4.00-12.00) mmol/L BUN/Creatinine Ratio (12.00-20.00) Ratio Glucose (70-110) mg/dL POC Glucose (mg/dL) 151 H 107 H (75-99) mg/dL Assessment and Plan Plan: 1 COVID-19 related pneumonia. Symptom onset was more than 3 weeks ago. Nevertheless, the patient got a pressure diagnosed on 02/18/2021. She is presented with hypoxic respiratory failure, shortness of breath and cough. She has diffuse bilateral pulmonary infiltrates. D-dimer is quite elevated. There is also elevation of the LDH and CRP. She is symptomatic currently on 5 L of oxygen by nasal cannula.note that this is a vaccinated individual and the patient has taken 2 shots of Pfizer without the booster. D-dimer is elevated. Further workup including a Doppler of the lower extremity and CT angiogram came back negative. 2 acute hypoxic respiratory failure secondary to above 3 elevation of the inflammatory markers including d-dimer without evidence of any DVT or pulmonary embolism 4 shortness of breath secondary to above 5 cough secondary to above 6 coronary artery disease 7 hyperlipidemia on Lipitor Plan Keep the patient on 5 L of oxygen by nasal cannula Agree on Decadron 6 mg on a daily basis Continue Lovenox 40 mg subcu for DVT prophylaxis Check Doppler of the lower extremities and CT angios the chest to rule out DVT or pulmonary embolism Monitor inflammatory markers Multivitamins Titrate oxygen flow to maintain a saturation above 90%, currently on 5 L Condition is stable compared to yesterday. Dopplers are negative. CT angiogram showed no evidence of any pulmonary embolism. We'll continue to follow.
[2021-02-27 12:22] LABS: Glucose,Whole Blood 169 mg/dL (75-99)
--- NOTE | 2021-02-27 15:16 | P.PN ---
Subjective This is a pleasant 70 years old female with past medical history of coronary artery disease status post stenting, hypertension Presents because of dyspnea and coughing. Patient states that she's been having shortness of breath since earlier of the muscle about 3 weeks ago. Last week she started having back and she was tested positive for Covid Today her husbandis that she almost passed out during a severe bout of coughing so she came to the emergency room. She denies chest pain or abdominal pain or diarrhea. No headache or weakness. Covid vaccine Pfizer 2 shots on June and July of this year. She does not smoke or drink. No illicit drugs. On the presentation she is hypothermic 96. Hypoxic with oxygen saturation 88% on room air. Improve to 90% on 5 with oxygen Left showing mild leukocytosis of 12.2. Rest of CBC, INR, BMP liver enzymes and troponin were unremarkable. EKG showing normal sinus rhythm at [address]-T changes and QTC is 499. Chest x-ray: Bilateral infiltrates 02/26/2021 Patient breathing feels better per patient. She still on 5 L oxygen via nasal cannula. Personal vitals are stable. Blood pressure is 154/64. Leukocytosis is back to normal at 6.9. Pro-calcitonin is normal at 0.04. However her d-dimer is significantly improved up to 20. Pulmonary input is appreciated, CTA of the chest is ordered to rule out PE. Estimated continue with Lovenox. She remains on dexamethasone 6 mg and multiple vitamins C, D and zinc Objective - Vital Signs Vital signs: Vital Signs Temp 97.5 F L 02/27/21 11:34 Pulse 51 L 02/27/21 11:34 Resp 20 02/27/21 11:34 BP 104/68 02/27/21 11:34 Pulse Ox 91 L 02/27/21 11:34 Intake & Output 02/26/21 02/27/21 02/27/21 18:59 06:59 18:59 Other: Voiding Method Toilet # Voids 3 1 - Labs CBC & Chem 7: 02/26/21 07:49 02/26/21 07:49 Labs: Abnormal Lab Results - Last 24 Hours (Table) 02/26/21 02/26/21 02/27/21 Range/Units 16:44 20:15 06:59 POC Glucose (mg/dL) 129 H 151 H 107 H (75-99) mg/dL 02/27/21 Range/Units 12:02 POC Glucose (mg/dL) 169 H (75-99) mg/dL Assessment and Plan Assessment: Acute bilateral covid With pneumonia acute hypoxic respiratory failure Increased inflammatory markers Mild mediastinal and her lymphadenopathy Elevated d-dimer, rule out PE History of coronary artery disease status post stenting Hypertension Plan: this is a pleasant 70 years old female who presents with Covid pneumonia Continue with oxygen as needed and vitamins, vitamin C, D and zinc. Dexamethasone Pulmonary consult monitor inflammatory markers, and d-dimer Patient with mild mediastinal and hilar lymphadenopathy at may need repeat CT of the chest in 2-3 months, patient informed Labs and medication were reviewed.. Continue same treatment. Continue with symptomatic treatment. Resume home medication. Monitor lytes and vitals. DVT and GI prophylaxis. Further recommendations depends on the clinical course of the patient DVT prophylaxis: Subcutan Lovenox GI Prophylaxis: Pepcid PT/OT: Pending Prognosis is guarded
[2021-02-27 16:52] LABS: Glucose,Whole Blood 132 mg/dL (75-99)
[2021-02-27] MEDS: atenoloL 25 MG TAB PO SCH (19:52)
[2021-02-27 20:25] LABS: Glucose,Whole Blood 154 mg/dL (75-99)
[2021-02-27] MEDS: ASPIRIN 81 MG PO SCH (20:33)
[2021-02-27] MEDS: ATORVASTATIN 20 MG TAB PO SCH (20:33)
--- NOTE | 2021-02-28 07:33 | XR ---
EXAMINATION TYPE: XR chest 1V portable DATE OF EXAM: 02/28/2021 HISTORY: Shortness of breath. COMPARISON: 02/25/2021 TECHNIQUE: Single view of the chest is submitted. FINDINGS: Demonstrated are scattered senescent parenchymal change. Airspace and interstitial infiltrates throughout the right lung as well as the left perihilar and lef t lower lobe regions persist unchanged. The heart is stable. Hilar and mediastinal structures are within normal limits. Degenerative changes are seen of the dorsal spine. IMPRESSION: 1. Stable chest
[2021-02-28 07:39] LABS: Glucose,Whole Blood 94 mg/dL (75-99)
[2021-02-28] MEDS: INSULIN ASPART (NovoLOG) 100 UNIT/ML VIAL SQ SCH ×4 (08:53→20:06)
[2021-02-28] MEDS: ENOXAPARIN 40 MG/0.4 ML SYRINGE SQ SCH (09:01)
[2021-02-28] MEDS: amLODIPine 5 MG TAB PO SCH ×2 (09:01→20:13)
[2021-02-28] MEDS: guaiFENesin-DM 100-10MG/5ML 10 ML CUP PO SCH ×2 (09:01→17:23)
[2021-02-28] MEDS: CHOLECALCIFEROL 25 MCG (1000 IU) TABLET PO SCH (09:01)
[2021-02-28] MEDS: ZINC SULFATE 220 MG CAP PO SCH (09:01)
[2021-02-28] MEDS: ASCORBIC ACID 500 MG TAB PO SCH (09:01)
[2021-02-28] MEDS: TIMOLOL 0.5% OPHTH DROPS 5 ML BTL BOTH EYES SCH (09:04)
[2021-02-28] MEDS: DEXAMETHASONE SOD PHOSPHATE 10 MG/ML 1 ML VIAL IVP SCH (09:22)
[2021-02-28] MEDS: SODIUM CHLORIDE 0.9% 1,000 ML IV SCH ×2 (09:30→20:14)
[2021-02-28 09:43] LABS: Basophils # (A) 0.01 X 10*3/uL (0.00-0.10); Basophils % (A) 0.1 %; Eosinophils # (A) 0 X 10*3/uL (0.04-0.35); Eosinophils % (A) 0 %; HCT 39.4 % (37.2-46.3); HGB 13.1 g/dL (12.0-15.0); Lymphocytes # (A) 1.19 X 10*3/uL (0.90-5.00); Lymphocytes % (A) 10.8 %; MCH 31.4 pg (27.0-32.0); MCHC 33.2 g/dL (32.0-37.0); MCV 94.5 fL (80.0-97.0); Mean Platelet Volume 9.9 fL (9.5-12.2); Monocytes # (A) 1.05 X 10*3/uL (0.20-1.00); Monocytes % (A) 9.5 %; Neutrophils # (A) 8.69 X 10*3/uL (1.80-7.70); Neutrophils % (A) 78.8 %; Platelet Count 423 X 10*3/uL (140-440); RBC 4.17 X 10*6/uL (4.10-5.20); RDW 13.1 % (11.5-14.5); WBC 11.03 X 10*3/uL (4.50-10.00)
[2021-02-28 10:22] LABS: African American GFR (CKD) 109.7 (60.0-200.0); Albumin 2.7 g/dL (3.8-4.9); Albumin/Globulin Ratio 1.21 (1.60-3.17); Anion Gap 10.7 mmol/L (4.00-12.00); BUN/Creat Ratio 32.96 Ratio (12.00-20.00); Blood Urea Nitrogen 17.6 mg/dL (9.0-27.0); C Reactive Protein 1.6 mg/dL (0.00-0.80); Calcium 8.6 mg/dL (8.7-10.3); Carbon Dioxide 20.4 mmol/L (21.6-31.8); Globulin 2.2 g/dL (1.6-3.3); Non-African American GFR(CKD) 94.6 (60.0-200.0); Potassium 4.2 mmol/L (3.5-5.5); Total Bilirubin 0.5 mg/dL (0.30-1.20); Total Protein 4.9 g/dL (6.2-8.2)
--- NOTE | 2021-02-28 11:07 | P.PN ---
Subjective Progress Note Date: 02/28/21 02/28/2021, the patient's condition is still stable and the patient is on 5 L of oxygen by nasal cannula. Repeat chest x-ray was done and the patient has stable bilateral pulmonary infiltrates. Note that there has been no interval worsening in her condition. There is no interval worsening in the chest x-ray findings. CAT scan of the chest showed no evidence of any pulmonary embolism. The patient remains on Lovenox subcu for DVT prophylaxis. The patient remains on Decadron 6 September grams IV every 24 hours. She is using incentive spirometer. No other significant events otherwise for now. Not ready for discharge yet. She feels that she is getting better.In terms of her inflammatory markers, her d-dimer is up To 8.8, She Has a LDH Level down to 281 and a CRP Level Is at 1.6. Objective - Vital Signs Vital signs: Vital Signs Temp 97.6 F 02/28/21 05:34 Pulse 54 L 02/28/21 05:34 Resp 18 02/28/21 09:30 BP 155/75 02/28/21 05:34 Pulse Ox 92 L 02/28/21 05:34 Intake & Output 02/27/21 02/28/21 02/28/21 18:59 06:59 18:59 Intake Total 250 Balance 250 Intake: Oral 250 Other: Voiding Method Toilet Toilet # Voids 4 3 - Exam patient's breathing is nonlabored and she is currently on 5 L about 2 by nasal cannula The patient appeared well nourished and normally developed. Vital signs as documented. Head exam is unremarkable. No scleral icterus or corneal arcus noted. Neck is without jugular venous distension, thyromegaly, or carotid bruits. Carotid upstrokes are brisk bilaterally. Lungs review crackles in the mid and lower lung fuller bilaterally Cardiac exam reveals the PMI to be normally sized and situated. Rhythm is regular. First and second heart sounds normal. No murmurs, rubs or gallops. Abdominal exam reveals normal bowel sounds, no masses, no organomegaly and no aortic enlargement. Extremities are nonedematous and both femoral and pedal pulses are normal.Examination of the skin revealed no evidence of significant rashes, suspicious appearing nevi or other concerning lesions.Neurologically, the patient is awake and alert and the patient does not have any focal neurological deficit. Cranial nerves are essent ially intact - Labs CBC & Chem 7: 02/28/21 06:41 02/28/21 06:41 Labs: Abnormal Lab Results - Last 24 Hours (Table) 02/27/21 02/27/21 02/27/21 Range/Units 12:02 16:44 20:24 WBC (4.50-10.00) X 10*3/uL Immature Gran # (0.00-0.04) X 10*3/uL Neutrophils # (1.80-7.70) X 10*3/uL Monocytes # (0.20-1.00) X 10*3/uL Eosinophils # (0.04-0.35) X 10*3/uL D-Dimer (<0.60) mg/L FEU Chloride (96-109) mmol/L Carbon Dioxide (21.6-31.8) mmol/L Creatinine (0.6-1.5) mg/dL BUN/Creatinine Ratio (12.00-20.00) Ratio POC Glucose (mg/dL) 169 H 132 H 154 H (75-99) mg/dL Calcium (8.7-10.3) mg/dL AST (13-35) U/L ALT (8-44) U/L Lactate Dehydrogenase (120-246) U/L C-Reactive Protein (0.00-0.80) mg/dL Total Protein (6.2-8.2) g/dL Albumin (3.8-4.9) g/dL Albumin/Globulin Ratio (1.60-3.17) g/dL TSH (0.350-5.500) uIU/mL 02/28/21 02/28/21 02/28/21 Range/Units 06:41 06:41 06:41 WBC 11.03 H (4.50-10.00) X 10*3/uL Immature Gran # 0.09 H (0.00-0.04) X 10*3/uL Neutrophils # 8.69 H (1.80-7.70) X 10*3/uL Monocytes # 1.05 H (0.20-1.00) X 10*3/uL Eosinophils # 0 L (0.04-0.35) X 10*3/uL D-Dimer 8.81 H (<0.60) mg/L FEU Chloride 111 H (96-109) mmol/L Carbon Dioxide 20.4 L (21.6-31.8) mmol/L Creatinine 0.5 L (0.6-1.5) mg/dL BUN/Creatinine Ratio 32.96 H (12.00-20.00) Ratio POC Glucose (mg/dL) (75-99) mg/dL Calcium 8.6 L (8.7-10.3) mg/dL AST 48 H (13-35) U/L ALT 53 H (8-44) U/L Lactate Dehydrogenase 281 H (120-246) U/L C-Reactive Protein 1.60 H (0.00-0.80) mg/dL Total Protein 4.9 L (6.2-8.2) g/dL Albumin 2.7 L (3.8-4.9) g/dL Albumin/Globulin Ratio 1.21 L (1.60-3.17) g/dL TSH 0.195 L (0.350-5.500) uIU/mL Assessment and Plan Plan: 1 COVID-19 related pneumonia. Symptom onset was more than 3 weeks ago. Nevertheless, the patient got a pressure diagnosed on 02/18/2021. She is presented with hypoxic respiratory failure, shortness of breath and cough. She has diffuse bilateral pulmonary infiltrates. D-dimer is quite elevated. There is also elevation of the LDH and CRP. She is symptomatic currently on 5 L of oxygen by nasal cannula.note that this is a vaccinated individual and the patient has taken 2 shots of Pfizer without the booster. D-dimer was elevated and limited essentially improving. LDH level is lower. She remains on Decadron. CTA showed no evidence of any pulmonary embolism. 2 acute hypoxic respiratory failure secondary to above, still on 5 L 3 elevation of the inflammatory markers including d-dimer without evidence of any DVT or pulmonary embolism 4 shortness of breath secondary to above 5 cough secondary to above 6 coronary artery disease 7 hyperlipidemia on Lipitor Plan Keep the patient on 5 L of oxygen by nasal cannula Continue Decadron 6 mg on a daily basis Continue Lovenox 40 mg subcu for DVT prophylaxis CTA of the chest shows no evidence of any pulmonary embolism. Monitor inflammatory markers Multivitamins Titrate oxygen flow to maintain a saturation above 90%, currently on 5 L Condition is stable compared to yesterday. We'll continue to follow.
[2021-02-28 12:14] LABS: Glucose,Whole Blood 104 mg/dL (75-99)
--- NOTE | 2021-02-28 16:58 | P.PN ---
Subjective This is a pleasant 70 years old female with past medical history of coronary artery disease status post stenting, hypertension Presents because of dyspnea and coughing. Patient states that she's been having shortness of breath since earlier of the muscle about 3 weeks ago. Last week she started having back and she was tested positive for Covid Today her husbandis that she almost passed out during a severe bout of coughing so she came to the emergency room. She denies chest pain or abdominal pain or diarrhea. No headache or weakness. Covid vaccine Pfizer 2 shots on June and July of this year. She does not smoke or drink. No illicit drugs. On the presentation she is hypothermic 96. Hypoxic with oxygen saturation 88% on room air. Improve to 90% on 5 with oxygen Left showing mild leukocytosis of 12.2. Rest of CBC, INR, BMP liver enzymes and troponin were unremarkable. EKG showing normal sinus rhythm at [address]-T changes and QTC is 499. Chest x-ray: Bilateral infiltrates 02/26/2021 Patient breathing feels better per patient. She still on 5 L oxygen via nasal cannula. Personal vitals are stable. Blood pressure is 154/64. Leukocytosis is back to normal at 6.9. Pro-calcitonin is normal at 0.04. However her d-dimer is significantly improved up to 20. Pulmonary input is appreciated, CTA of the chest is ordered to rule out PE. Estimated continue with Lovenox. She remains on dexamethasone 6 mg and multiple vitamins C, D and zinc 02/28/2021 Patient clinically the same as yesterday. She remains on 5 L oxygen. She is hemodynamically stable other than hypoxia. WBC is 11 K. TSH is low. Liver enzymes mildly elevated Chest x-ray is a stable Continue with dexamethasone and multiple vitamins Patient was informed about need for repeat CT of the chest and a 3 months for bilateral mediastinal and hilar lymphadenopathy Case was discussed with the pulmonary team Objective - Vital Signs Vital signs: Vital Signs Temp 98.0 F 02/28/21 14:00 Pulse 55 L 02/28/21 14:00 Resp 18 02/28/21 14:00 BP 155/62 02/28/21 14:00 Pulse Ox 95 02/28/21 14:00 Intake & Output 02/27/21 02/28/21 02/28/21 18:59 06:59 18:59 Intake Total 450 Balance 450 Intake: Oral 450 Other: Voiding Method Toilet Toilet # Voids 4 3 - Exam GENERAL: The patient is alert and oriented x3, not in any acute distress. Well developed, well nourished. HEENT: Pupils are round and equally reacting to light. EOMI. No scleral icterus. No conjunctival pallor. Normocephalic, atraumatic. No pharyngeal erythema. No thyromegaly. CARDIOVASCULAR: S1 and S2 present. No murmurs, rubs, or gallops. -PULMONARY: Chest is clear to auscultation, no wheezing laterally crepitation ABDOMEN: Soft, nontender, nondistended, normoactive bowel sounds. No palpable organomegaly. MUSCULOSKELETAL: No joint swelling or deformity. EXTREMITIES: No cyanosis, clubbing, or pedal edema. NEUROLOGICAL: Gross neurological examination did not reveal any focal deficits. SKIN: No rashes. no petechiae. - Labs CBC & Chem 7: 02/28/21 06:41 02/28/21 06:41 Labs: Abnormal Lab Results - Last 24 Hours (Table) 02/27/21 02/28/21 02/28/21 Range/Units 20:24 06:41 06:41 WBC 11.03 H (4.50-10.00) X 10*3/uL Immature Gran # 0.09 H (0.00-0.04) X 10*3/uL Neutrophils # 8.69 H (1.80-7.70) X 10*3/uL Monocytes # 1.05 H (0.20-1.00) X 10*3/uL Eosinophils # 0 L (0.04-0.35) X 10*3/uL D-Dimer 8.81 H (<0.60) mg/L FEU Chloride (96-109) mmol/L Carbon Dioxide (21.6-31.8) mmol/L Creatinine (0.6-1.5) mg/dL BUN/Creatinine Ratio (12.00-20.00) Ratio POC Glucose (mg/dL) 154 H (75-99) mg/dL Calcium (8.7-10.3) mg/dL AST (13-35) U/L ALT (8-44) U/L Lactate Dehydrogenase (120-246) U/L C-Reactive Protein (0.00-0.80) mg/dL Total Protein (6.2-8.2) g/dL Albumin (3.8-4.9) g/dL Albumin/Globulin Ratio (1.60-3.17) g/dL TSH (0.350-5.500) uIU/mL 02/28/21 02/28/21 Range/Units 06:41 12:12 WBC (4.50-10.00) X 10*3/uL Immature Gran # (0.00-0.04) X 10*3/uL Neutrophils # (1.80-7.70) X 10*3/uL Monocytes # (0.20-1.00) X 10*3/uL Eosinophils # (0.04-0.35) X 10*3/uL D-Dimer (<0.60) mg/L FEU Chloride 111 H (96-109) mmol/L Carbon Dioxide 20.4 L (21.6-31.8) mmol/L Creatinine 0.5 L (0.6-1.5) mg/dL BUN/Creatinine Ratio 32.96 H (12.00-20.00) Ratio POC Glucose (mg/dL) 104 H (75-99) mg/dL Calcium 8.6 L (8.7-10.3) mg/dL AST 48 H (13-35) U/L ALT 53 H (8-44) U/L Lactate Dehydrogenase 281 H (120-246) U/L C-Reactive Protein 1.60 H (0.00-0.80) mg/dL Total Protein 4.9 L (6.2-8.2) g/dL Albumin 2.7 L (3.8-4.9) g/dL Albumin/Globulin Ratio 1.21 L (1.60-3.17) g/dL TSH 0.195 L (0.350-5.500) uIU/mL Assessment and Plan Assessment: Acute bilateral covid With pneumonia acute hypoxic respiratory failure Increased inflammatory markers Mild mediastinal and her lymphadenopathy Elevated d-dimer, rule out PE History of coronary artery disease status post stenting Hypertension Plan: this is a pleasant 70 years old female who presents with Covid pneumonia Continue with oxygen as needed and vitamins, vitamin C, D and zinc. Dexamethasone Pulmonary consult monitor inflammatory markers, and d-dimer Patient with mild mediastinal and hilar lymphadenopathy at may need repeat CT of the chest in 2-3 months, patient informed Labs and medication were reviewed.. Continue same treatment. Continue with symptomatic treatment. Resume home medication. Monitor lytes and vitals. DVT and GI prophylaxis. Further recommendations depends on the clinical course of the patient DVT prophylaxis: Subcutan Lovenox GI Prophylaxis: Pepcid PT/OT: Pending Prognosis is guarded
[2021-02-28 17:08] LABS: Glucose,Whole Blood 123 mg/dL (75-99)
[2021-02-28 20:06] LABS: Glucose,Whole Blood 129 mg/dL (75-99)
[2021-02-28] MEDS: atenoloL 25 MG TAB PO SCH (20:12)
[2021-02-28] MEDS: ASPIRIN 81 MG PO SCH (20:13)
[2021-02-28] MEDS: ATORVASTATIN 20 MG TAB PO SCH (20:13)
[2021-03-01] MEDS: guaiFENesin-DM 100-10MG/5ML 10 ML CUP PO SCH ×4 (01:01→23:14)
[2021-03-01 07:04] LABS: Glucose,Whole Blood 87 mg/dL (75-99)
[2021-03-01] MEDS: INSULIN ASPART (NovoLOG) 100 UNIT/ML VIAL SQ SCH ×4 (08:07→21:29)
[2021-03-01] MEDS: amLODIPine 5 MG TAB PO SCH ×2 (08:08→21:30)
[2021-03-01] MEDS: CHOLECALCIFEROL 25 MCG (1000 IU) TABLET PO SCH (08:08)
[2021-03-01] MEDS: DEXAMETHASONE SOD PHOSPHATE 10 MG/ML 1 ML VIAL IVP SCH (08:08)
[2021-03-01] MEDS: ZINC SULFATE 220 MG CAP PO SCH (08:08)
[2021-03-01] MEDS: ASCORBIC ACID 500 MG TAB PO SCH (08:08)
[2021-03-01] MEDS: ENOXAPARIN 40 MG/0.4 ML SYRINGE SQ SCH (08:09)
[2021-03-01] MEDS: TIMOLOL 0.5% OPHTH DROPS 5 ML BTL BOTH EYES SCH (08:17)
[2021-03-01] MEDS: SODIUM CHLORIDE 0.9% 1,000 ML IV SCH ×2 (08:18→23:14)
[2021-03-01 11:54] LABS: African American GFR (CKD) 102.6 (60.0-200.0); Albumin 2.8 g/dL (3.8-4.9); Albumin/Globulin Ratio 1.27 (1.60-3.17); Anion Gap 9.7 mmol/L (4.00-12.00); BUN/Creat Ratio 25.84 Ratio (12.00-20.00); Blood Urea Nitrogen 16.9 mg/dL (9.0-27.0); Calcium 8.7 mg/dL (8.7-10.3); Carbon Dioxide 21.8 mmol/L (21.6-31.8); Globulin 2.2 g/dL (1.6-3.3); Non-African American GFR(CKD) 88.5 (60.0-200.0); Potassium 4.4 mmol/L (3.5-5.5); T4, Free (Free Thyroxine) 1.48 ng/dL (0.800-1.800); Total Bilirubin 0.5 mg/dL (0.30-1.20); Total Protein 5.1 g/dL (6.2-8.2)
[2021-03-01 12:03] LABS: Glucose,Whole Blood 110 mg/dL (75-99)
--- NOTE | 2021-03-01 14:56 | P.PN ---
Subjective Progress Note Date: 03/01/21 Principal diagnosis: COVID-19 pneumonia On 03/01/2021 patient seen in follow-up on medical surgical floor, she is currently on 4 L of oxygen pulse ox is 94%. Breathing comfortably, last chest x-ray from yesterday showed airspace and interstitial infiltrates, stable in appearance, fever or chills, mild signs have been stable, she continues on Decadron 6 mg daily, Lovenox 40 mg daily, multivitamins. D-dimer is down to 8.81 on yesterday's labs, improving. Pro-calcitonin level was negative at 0.04, LDH was down to 281 from previously at 1235, and CRP is 1.6 down from 14.[address] angiogram of the chest showed no pulmonary embolism. Lower extremity Dopplers were negative for DVT Objective - Vital Signs Vital signs: Vital Signs Temp 97.6 F 03/01/21 14:36 Pulse 59 L 03/01/21 14:36 Resp 18 03/01/21 14:36 BP 115/70 03/01/21 14:36 Pulse Ox 97 03/01/21 14:36 Intake & Output 02/28/21 03/01/21 03/01/21 18:59 06:59 18:59 Intake Total 750 300 Balance 750 300 Intake: Oral 750 300 Other: Voiding Method Toilet Toilet # Voids 3 3 - Exam GENERAL EXAM: Alert, very pleasant, 70-year-old white female, on 4 L of oxygen the pulse ox of 97% comfortable in no apparent distress. HEAD: Normocephalic/atraumatic. EYES: Normal reaction of pupils, equal size. Conjunctiva pink, sclera white. NOSE: Clear with pink turbinates. THROAT: No erythema or exudates. NECK: No masses, no JVD, no thyroid enlargement, no adenopathy. CHEST: No chest wall deformity. Symmetrical expansion. LUNGS: Equal air entry with bibasilar crackles CVS: Regular rate and rhythm, normal S1 and S2, no gallops, no murmurs, no rubs ABDOMEN: Soft, nontender. No hepatosplenomegaly, normal bowel sounds, no guarding or rigidity. EXTREMITIES: No clubbing, no edema, no cyanosis, 2+ pulses and upper and lower extremities. MUSCULOSKELETAL: Muscle strength and tone normal. SPINE: No scoliosis or deformity SKIN: No rashes CENTRAL NERVOUS SYSTEM: Alert and oriented -3. No focal deficits, tone is normal in all 4 extremities. PSYCHIATRIC: Alert and oriented -3. Appropriate affect. Intact judgment and insight. - Labs CBC & Chem 7: 02/28/21 06:41 03/01/21 07:07 Labs: Abnormal Lab Results - Last 24 Hours (Table) 02/28/21 02/28/21 03/01/21 Range/Units 17:07 20:04 07:07 BUN/Creatinine Ratio 25.84 H (12.00-20.00) Ratio POC Glucose (mg/dL) 123 H 129 H (75-99) mg/dL AST 55 H (13-35) U/L ALT 77 H (8-44) U/L Total Protein 5.1 L (6.2-8.2) g/dL Albumin 2.8 L (3.8-4.9) g/dL Albumin/Globulin Ratio 1.27 L (1.60-3.17) g/dL 03/01/21 Range/Units 12:01 BUN/Creatinine Ratio (12.00-20.00) Ratio POC Glucose (mg/dL) 110 H (75-99) mg/dL AST (13-35) U/L ALT (8-44) U/L Total Protein (6.2-8.2) g/dL Albumin (3.8-4.9) g/dL Albumin/Globulin Ratio (1.60-3.17) g/dL Assessment and Plan Plan: Assessment: #1. COVID-19 pneumonia, but symptom onset more than 3 weeks ago, patient was outside the window for Remdesivir. Patient had outpatient COVID-19 test that was positive on 02/18/2021, presented with hypoxic respiratory failure, s hortness of breath and cough. She had diffuse bilateral pulmonary infiltrates, patient nevertheless had completed her COVID-19 vaccination and she has taken 2 shots of Pfizer vaccine. Patient has been treated with Decadron, prophylactic anticoagulation #2. Elevated d-dimer without CT evidence of pulmonary embolism, and no evidence of DVT on lower extremity Dopplers #3. Elevated inflammatory markers, improving #4. Shortness of breath secondary to COVID-19 pneumonia, improving #5. Cough, nonproductive #6. History of coronary artery disease #7. Hyperlipidemia on Lipitor Plan: Continue current medical treatment Continue weaning FiO2 Obtain home oxygen assessment, to see if the patient qualifies for home oxygen Follow-up chest x-ray in inflammatory markers tomorrow Continue Decadron and prophylactic Lovenox Possible discharge in next 24 hours if remains stable I performed a history & physical examination of the patient and discussed their management with my nurse practitioner, Mami Calvillo. I reviewed the nurse practitioner's note and agree with the documented findings and plan of care. Lung sounds are positive for diminished breath sounds throughout the lung fuller . The findings and the impression was discussed with the patient. I attest to the documentation by the nurse practitioner. Time with Patient: Less than 30
[2021-03-01 16:40] LABS: Glucose,Whole Blood 126 mg/dL (75-99)
[2021-03-01 21:26] LABS: Glucose,Whole Blood 113 mg/dL (75-99)
[2021-03-01] MEDS: atenoloL 25 MG TAB PO SCH (21:29)
[2021-03-01] MEDS: ASPIRIN 81 MG PO SCH (21:30)
[2021-03-01] MEDS: ATORVASTATIN 20 MG TAB PO SCH (21:30)
--- NOTE | 2021-03-01 23:53 | P.PN ---
Subjective Progress Note Date: 03/01/21 This is a pleasant 70 years old female with past medical history of coronary artery disease status post stenting, hypertension Presents because of dyspnea and coughing. Patient states that she's been having shortness of breath since earlier of the muscle about 3 weeks ago. Last week she started having back and she was tested positive for Covid Today her husbandis that she almost passed out during a severe bout of coughing so she came to the emergency room. She denies chest pain or abdominal pain or diarrhea. No headache or weakness. Covid vaccine [employer] 2 shots on June and July of this year. She does not smoke or drink. No illicit drugs. On the presentation she is hypothermic 96. Hypoxic with oxygen saturation 88% on room air. Improve to 90% on 5 with oxygen Left showing mild leukocytosis of 12.2. Rest of CBC, INR, BMP liver enzymes and troponin were unremarkable. EKG showing normal sinus rhythm at [address]-T changes and QTC is 499. Chest x-ray: Bilateral infiltrates 02/26/2021 Patient breathing feels better per patient. She still on 5 L oxygen via nasal cannula. Personal vitals are stable. Blood pressure is 154/64. Leukocytosis is back to normal at 6.9. Pro-calcitonin is normal at 0.04. However her d-dimer is significantly improved up to 20. Pulmonary input is appreciated, CTA of the chest is ordered to rule out PE. Estimated continue with Lovenox. She remains on dexamethasone 6 mg and multiple vitamins C, D and zinc 02/28/2021 Patient clinically the same as yesterday. She remains on 5 L oxygen. She is hemodynamically stable other than hypoxia. WBC is 11 K. TSH is low. Liver enzymes mildly elevated Chest x-ray is a stable Continue with dexamethasone and multiple vitamins Patient was informed about need for repeat CT of the chest and a 3 months for bilateral mediastinal and hilar lymphadenopathy Case was discussed with the pulmonary team 03/01/2021 Patient is see and evaluated this morning and currently on 4L NC and tolerating the weaning. Patient was on 5L throughout the evening. Pulmonary following and patient is continued on IV dexamethasone, vitamin, and zinc supplements with lovenox and will continue. Discussed with case management about the need for home 02 and prescription provided. Will order chest xray and labs for the am. Patient is tolerating diet with no nausea or vomiting noted and will DC IV fluids. Encouraged cough and deep breathing and incentive spirometer which is at the bedside. Encouraged increased activity as tolerated as well. Review of systems: Constitutional: No reports of fatigue, fever, or chills Cardiovascular: No reports of chest pain or palpitations Respiratory: No reports of worsening shortness of breath or cough GI: No reports of nausea, vomiting, or diarrhea : No reports of dysuria or retention Neurovascular: No reports of weakness or numbness All medications have been reviewed Active Medications Acetaminophen (Acetaminophen Tab 325 Mg Tab) 650 mg PO Q6HR PRN PRN Reason: Mild Pain or Fever > 100.5 Amlodipine Besylate (Amlodipine 5 Mg Tab) 5 mg PO BID [facility] Last Admin: 03/01/21 08:08 Dose: 5 mg Documented by: Ascorbic Acid (Ascorbic Acid 500 Mg Tab) 1,000 mg PO DAILY [facility] Last Admin: 03/01/21 08:08 Dose: 1,000 mg Documented by: Aspirin (Aspirin 81 Mg) 81 mg PO [facility] Last Admin: 02/28/21 20:13 Dose: 81 mg Documented by: Atenolol (Atenolol 25 Mg Tab) 25 mg PO [facility] Last Admin: 02/28/21 20:12 Dose: Not Given Documented by: Atorvastatin Calcium (Atorvastatin 20 Mg Tab) 20 mg PO [facility] Last Admin: 02/28/21 20:13 Dose: 20 mg Documented by: Cholecalciferol (Cholecalciferol 25 Mcg (1000 Iu) Tablet) 50 mcg PO DAILY [facility] Last Admin: 03/01/21 08:08 Dose: 50 mcg Documented by: Dexamethasone Sodium Phosphate (Dexamethasone Sod Phosphate 10 Mg/Ml 1 Ml Vial) 6 mg IVP DAILY [facility] Last Admin: 03/01/21 08:08 Dose: 6 mg Documented by: Enoxaparin Sodium (Enoxaparin 40 Mg/0.4 Ml Syringe) 40 mg SQ DAILY [facility] Last Admin: 03/01/21 08:09 Dose: 40 mg Documented by: Guaifenesin/Dextromethorphan (Guaifenesin-Dm 100-10mg/5ml 10 Ml Cup) 10 ml PO Q8HR [facility] Stop: 03/02/21 16:16 Last Admin: 03/01/21 08:08 Dose: 10 ml Documented by: Hydralazine HCl (Hydralazine Hcl 25 Mg Tab) 25 mg PO TID PRN PRN Reason: Blood Pressure - High Sodium Chloride (Saline 0.9%) 1,000 mls @ 75 mls/hr IV .[id number] [facility] Last Admin: 03/01/21 08:18 Dose: 75 mls/hr Documented by: Ibuprofen (Ibuprofen 400 Mg Tab) 400 mg PO Q6HR PRN PRN Reason: Mild Pain or Fever > 100.5 Insulin Aspart (Insulin Aspart (Novolog) 100 Unit/Ml Vial) 0 unit SQ ACHS [facility]; Protocol Last Admin: 03/01/21 12:39 Dose: Not Given Documented by: Naloxone HCl (Naloxone 0.4 Mg/Ml 1 Ml Vial) 0.2 mg IV Q2M PRN PRN Reason: Opioid Reversal Non-Formulary Medication (Flarex 0.1% Opth Solution) 1 drop BOTH EYES TUTHSA [facility] Last Admin: 02/27/21 10:37 Dose: Not Given Documented by: Ondansetron HCl (Ondansetron 4 Mg/2 Ml Vial) 4 mg IVP Q8HR PRN PRN Reason: Nausea And Vomiting Timolol Maleate (Timolol 0.5% Ophth Drops 5 Ml Btl) 1 drops BOTH EYES DAILY [facility] Last Admin: 03/01/21 08:17 Dose: 1 drops Documented by: Zinc Sulfate (Zinc Sulfate 220 Mg Cap) 220 mg PO DAILY [facility] Last Admin: 03/01/21 08:08 Dose: 220 mg Documented by: Physical exam: GENERAL: The patient is alert and oriented x3, not in any acute distress. Well developed, well nourished. HEENT: Pupils are round and equally reacting to light. EOMI. No scleral icterus. No conjunctival pallor. Normocephalic, atraumatic. No pharyngeal erythema. No thyromegaly. CARDIOVASCULAR: S1 and S2 present. No murmurs, rubs, or gallops. -PULMONARY: Chest is clear to auscultation, no wheezing or rhonchi noted ABDOMEN: Soft, nontender, nondistended, normoactive bowel sounds. No palpable or ganomegaly. MUSCULOSKELETAL: No joint swelling or deformity. EXTREMITIES: No cyanosis, clubbing, or pedal edema. NEUROLOGICAL: Gross neurological examination did not reveal any focal deficits. SKIN: No rashes. no petechiae. Assessment: Acute bilateral covid 19 with pneumonia acute hypoxic respiratory failure secondary to above Increased inflammatory markers Secondary to acute COVID-19 pneumonia Mild mediastinal and hilar lymphadenopathy requiring follow up in 3 months Elevated d-dimer, ruled out PE History of coronary artery disease status post stenting Hypertension GI Prophylaxis DVT prophylaxis Full code Plan: Recommend to continue with current medication management and continuing to wean FiO2 as tolerated. Patient is currently on 4 L via nasal cannula and will provide prescription for home oxygen and will have nursing staff perform home 02 evaluation as patient will likely Require home oxygen secondary to COVID-19 pneumonia. Continue with dexamethasone and Accu checks and will use sliding scale as needed. Encourage increased activity as tolerated and continued incentive spirometer use. Will repeat chest x-ray and labs in am. PoPossible discharge in 24 to 48 hours. Objective - Vital Signs Vital signs: Vital Signs Temp 97.7 F 03/01/21 06:26 Pulse 59 L 03/01/21 06:26 Resp 18 03/01/21 06:26 BP 158/75 03/01/21 06:26 Pulse Ox 94 L 03/01/21 06:26 Intake & Output 02/28/21 03/01/21 03/01/21 18:59 06:59 18:59 Intake Total 750 Balance 750 Intake: Oral 750 Other: Voiding Method Toilet Toilet # Voids 3 3 - Labs CBC & Chem 7: 02/28/21 06:41 03/01/21 07:07 Labs: Abnormal Lab Results - Last 24 Hours (Table) 02/28/21 02/28/21 02/28/21 Range/Units 12:12 17:07 20:04 POC Glucose (mg/dL) 104 H 123 H 129 H (75-99) mg/dL
[2021-03-02 07:22] LABS: Glucose,Whole Blood 86 mg/dL (75-99)
[2021-03-02] MEDS: INSULIN ASPART (NovoLOG) 100 UNIT/ML VIAL SQ SCH ×4 (07:36→20:15)
[2021-03-02] MEDS: FLUOROMETHOLONE 0.1% BOTH EYES SCH (08:37)
[2021-03-02] MEDS: ENOXAPARIN 40 MG/0.4 ML SYRINGE SQ SCH (08:45)
[2021-03-02] MEDS: guaiFENesin-DM 100-10MG/5ML 10 ML CUP PO SCH ×2 (08:45→16:34)
[2021-03-02] MEDS: amLODIPine 5 MG TAB PO SCH ×2 (08:46→20:12)
[2021-03-02] MEDS: ZINC SULFATE 220 MG CAP PO SCH (08:46)
[2021-03-02] MEDS: CHOLECALCIFEROL 25 MCG (1000 IU) TABLET PO SCH (08:46)
[2021-03-02] MEDS: TIMOLOL 0.5% OPHTH DROPS 5 ML BTL BOTH EYES SCH (08:46)
[2021-03-02] MEDS: ASCORBIC ACID 500 MG TAB PO SCH (08:46)
[2021-03-02] MEDS: DEXAMETHASONE SOD PHOSPHATE 10 MG/ML 1 ML VIAL IVP SCH (08:47)
[2021-03-02 09:06] LABS: Basophils % (A) 0 %; Eosinophils % (A) 0 %; HCT 43.3 % (34.0-46.0); HGB 14.8 gm/dL (11.4-16.0); Lymphocytes # (A) 1.1 k/uL (1.0-4.8); Lymphocytes % (A) 12 %; MCH 32.2 pg (25.0-35.0); MCHC 34.1 g/dL (31.0-37.0); MCV 94.5 fL (80.0-100.0); Monocytes # (A) 0.6 k/uL (0-1.0); Monocytes % (A) 7 %; Neutrophils # (A) 7.2 k/uL (1.3-7.7); Neutrophils % (A) 79 %; Platelet Count 490 k/uL (150-450); Poikilocytosis Slight; RBC 4.59 m/uL (3.80-5.40); RDW 13.5 % (11.5-15.5); WBC 9.2 k/uL (3.8-10.6)
[2021-03-02 09:15] LABS: African American GFR (CKD) >90 (>60 ml/min/1.73 sqM); Anion Gap 7 mmol/L; Blood Urea Nitrogen 17 mg/dL (7-17); Calcium 9.2 mg/dL (8.4-10.2); Carbon Dioxide 23 mmol/L (22-30); Chloride 109 mmol/L (98-107); Glucose 108 mg/dL (74-99); Non-African American GFR(CKD) 88 (>60 ml/min/1.73 sqM); Potassium 3.9 mmol/L (3.5-5.1); Sodium 139 mmol/L (137-145)
--- NOTE | 2021-03-02 09:30 | XR ---
EXAMINATION TYPE: XR chest 1V portable DATE OF EXAM: 03/02/2021 COMPARISON: Chest x-ray 02/28/2021 HISTORY: Covid TECHNIQUE: Single frontal view of the chest is obtained. FINDINGS: Bilateral airspace disease shows a similar distribution to previous exam. Cardiac mediasti nal silhouette is stable. Aorta is dense. No pneumothorax or pleural effusion. IMPRESSION: Findings consistent with patient's history of Covid infection, pneumonia
[2021-03-02 11:57] LABS: Glucose,Whole Blood 100 mg/dL (75-99)
--- NOTE | 2021-03-02 13:38 | P.PN ---
Subjective Progress Note Date: 03/02/21 Principal diagnosis: COVID-19 pneumonia On 03/01/2021 patient seen in follow-up on medical surgical floor, she is currently on 4 L of oxygen pulse ox is 94%. Breathing comfortably, last chest x-ray from yesterday showed airspace and interstitial infiltrates, stable in appearance, fever or chills, mild signs have been stable, she continues on Decadron 6 mg daily, Lovenox 40 mg daily, multivitamins. D-dimer is down to 8.81 on yesterday's labs, improving. Pro-calcitonin level was negative at 0.04, LDH was down to 281 from previously at 1235, and CRP is 1.6 down from 14.[address] angiogram of the chest showed no pulmonary embolism. Lower extremity Dopplers were negative for DVT On 03/02/2021 patient seen in follow-up on medical surgical floor, she is doing better today, still a bit dyspneic at rest, but no acute distress, she is on 4 L of oxygen pulse ox of 94%, she sits up in the chair, she has been ambulating in the room, tolerating activity fairly well, follow-up chest x-ray today showed bilateral airspace disease, stable in appearance. CT chest was negative for pulmonary embolism, lower extremity Dopplers were negative for DVT. Patient's d-dimer today is 8.07, she is on Lovenox 40 mg daily, patient also continues on Decadron 6 mg daily, multivitamins. White blood cell count today is 9.2, hemoglobin is 14.8, electrolytes and renal profile are unremarkable. She is tolerating oral intake, denies any acute complaints. Discharge is pending for tomorrow, we'll continue weaning FiO2 as tolerated, and we will increase activity as tolerated. Objective - Vital Signs Vital signs: Vital Signs Temp 97.9 F 03/02/21 10:00 Pulse 50 L 03/02/21 10:00 Resp 16 03/02/21 10:00 BP 104/60 03/02/21 10:00 Pulse Ox 94 L 03/02/21 10:00 Intake & Output 03/01/21 03/02/21 03/02/21 18:59 06:59 18:59 Intake Total 500 300 472 Output Total 600 Balance 500 -300 472 Intake: Oral 500 300 472 Output: Urine 600 Other: Voiding Method Toilet Toilet Toilet # Voids 3 5 # Bowel Movements 1 - Exam GENERAL EXAM: Alert, very pleasant, 70-year-old white female, on 4 L of oxygen the pulse ox of 97% comfortable in no apparent distress. HEAD: Normocephalic/atraumatic. EYES: Normal reaction of pupils, equal size. Conjunctiva pink, sclera white. NOSE: Clear with pink turbinates. THROAT: No erythema or exudates. NECK: No masses, no JVD, no thyroid enlargement, no adenopathy. CHEST: No chest wall deformity. Symmetrical expansion. LUNGS: Equal air entry with bibasilar crackles CVS: Regular rate and rhythm, normal S1 and S2, no gallops, no murmurs, no rubs ABDOMEN: Soft, nontender. No hepatosplenomegaly, normal bowel sounds, no guarding or rigidity. EXTREMITIES: No clubbing, no edema, no cyanosis, 2+ pulses and upper and lower extremities. MUSCULOSKELETAL: Muscle strength and tone normal. SPINE: No scoliosis or deformity SKIN: No rashes CENTRAL NERVOUS SYSTEM: Alert and oriented -3. No focal deficits, tone is normal in all 4 extremities. PSYCHIATRIC: Alert and oriented -3. Appropriate affect. Intact judgment and insight. - Labs CBC & Chem 7: 03/02/21 08:19 03/02/21 08:19 Labs: Abnormal Lab Results - Last 24 Hours (Table) 03/01/21 03/01/21 03/02/21 Range/Units 16:39 21:25 08:19 Plt Count (150-450) k/uL D-Dimer 8.07 H (<0.60) mg/L FEU Chloride (98-107) mmol/L Glucose (74-99) mg/dL POC Glucose (mg/dL) 126 H 113 H (75-99) mg/dL 03/02/21 03/02/21 03/02/21 Range/Units 08:19 08:19 11:56 Plt Count 490 H (150-450) k/uL D-Dimer (<0.60) mg/L FEU Chloride 109 H (98-107) mmol/L Glucose 108 H (74-99) mg/dL POC Glucose (mg/dL) 100 H (75-99) mg/dL Assessment and Plan Plan: Assessment: #1. COVID-19 pneumonia, but symptom onset more than 3 weeks ago, patient was outside the window for Remdesivir. Patient had outpatient COVID-19 test that was positive on 02/18/2021, presented with hypoxic respiratory failure, shortness of breath and cough. She had diffuse bilateral pulmonary infiltrates, patient nevertheless had completed her COVID-19 vaccination and she has taken 2 shots of Pfizer vaccine. Patient has been treated with Decadron, prophylactic anticoagulation #2. Elevated d-dimer without CT evidence of pulmonary embolism, and no evidence of DVT on lower extremity Dopplers #3. Elevated inflammatory markers, improving #4. Shortness of breath secondary to COVID-19 pneumonia, improving #5. Cough, nonproductive #6. History of coronary artery disease #7. Hyperlipidemia on Lipitor Plan: Continue weaning FiO2 Obtain home oxygen assessment, to see if the patient qualifies for home oxygen Follow-up chest x-ray reviewed, showing stable bilateral airspace disease Clinically patient has remained stable, continue weaning FiO2 Increase activity as tolerated D-dimer is improving although still elevated at 8.07 No CTA evidence of pulmonary embolism, no DVT on lower extremity Dopplers We'll add Eliquis 2.5 mg twice daily and recommend Eliquis 2.5 mg twice daily for 2 weeks after discharge for prophylactic anticoagulation at home Possible discharge home in the next 24 hours Outpatient follow-up with Dr. Dye in 3 weeks I performed a history & physical examination of the patient and discussed their management with my nurse practitioner, Mami Calvillo. I reviewed the nurse practitioner's note and agree with the documented findings and plan of care. Lung sounds are positive for diminished breath sounds throughout the lung fuller. The findings and the impression was discussed with the patient. I attest to the documentation by the nurse practitioner. Time with Patient: Less than 30
[2021-03-02 15:58] LABS: C Reactive Protein 0.7 mg/dL (0.00-0.80)
--- NOTE | 2021-03-02 16:10 | P.PN ---
Subjective Progress Note Date: 03/02/21 This is a pleasant 70 years old female with past medical history of coronary artery disease status post stenting, hypertension Presents because of dyspnea and coughing. Patient states that she's been having shortness of breath since earlier of the muscle about 3 weeks ago. Last week she started having back and she was tested positive for Covid Today her husbandis that she almost passed out during a severe bout of coughing so she came to the emergency room. She denies chest pain or abdominal pain or diarrhea. No headache or weakness. Covid vaccine [employer] 2 shots on June and July of this year. She does not smoke or drink. No illicit drugs. On the presentation she is hypothermic 96. Hypoxic with oxygen saturation 88% on room air. Improve to 90% on 5 with oxygen Left showing mild leukocytosis of 12.2. Rest of CBC, INR, BMP liver enzymes and troponin were unremarkable. EKG showing normal sinus rhythm at [address]-T changes and QTC is 499. Chest x-ray: Bilateral infiltrates 02/26/2021 Patient breathing feels better per patient. She still on 5 L oxygen via nasal cannula. Personal vitals are stable. Blood pressure is 154/64. Leukocytosis is back to normal at 6.9. Pro-calcitonin is normal at 0.04. However her d-dimer is significantly improved up to 20. Pulmonary input is appreciated, CTA of the chest is ordered to rule out PE. Estimated continue with Lovenox. She remains on dexamethasone 6 mg and multiple vitamins C, D and zinc 02/28/2021 Patient clinically the same as yesterday. She remains on 5 L oxygen. She is hemodynamically stable other than hypoxia. WBC is 11 K. TSH is low. Liver enzymes mildly elevated Chest x-ray is a stable Continue with dexamethasone and multiple vitamins Patient was informed about need for repeat CT of the chest and a 3 months for bilateral mediastinal and hilar lymphadenopathy Case was discussed with the pulmonary team 03/01/2021 Patient is see and evaluated this morning and currently on 4L NC and tolerating the weaning. Patient was on 5L throughout the evening. Pulmonary following and patient is continued on IV dexamethasone, vitamin, and zinc supplements with lovenox and will continue. Discussed with case management about the need for home 02 and prescription provided. Will order chest xray and labs for the am. Patient is tolerating diet with no nausea or vomiting noted and will DC IV fluids. Encouraged cough and deep breathing and incentive spirometer which is at the bedside. Encouraged increased activity as tolerated as well. 03/02/2021 Patient is seen in follow-up this morning continued on 4 L via nasal cannula and continues to have shortness of breath with exertion and experiencing shorter recovery time when up and walking. Will discuss with case management and prescription provided for home oxygen as patient will likely need this on discharge secondary to COVID-19 pneumonia. Pulmonary following closely and patient is maintained on vitamin zinc supplements along with IV dexamethasone. Lovenox has been discontinued and patient is resumed on Eliquis. Discharge planning in process. Labs: White blood count is 9.2, hemoglobin is 14.8, platelets are 490, d-dimer is 8.07, sodium is 139 with a potassium of 3.9 and current creatinine is 0.67, LDH is 307 and CRP is 0.70. Review of systems: Constitutional: No reports of fatigue, fever, or chills Cardiovascular: No reports of chest pain or palpitations Respiratory: No reports of worsening shortness of breath or cough GI: No reports of nausea, vomiting, or diarrhea : No reports of dysuria or retention Neurovascular: No reports of weakness or numbness All medications have been reviewed Active Medications Acetaminophen (Acetaminophen Tab 325 Mg Tab) 650 mg PO Q6HR PRN PRN Reason: Mild Pain or Fever > 100.5 Amlodipine Besylate (Amlodipine 5 Mg Tab) 5 mg PO BID [facility] Last Admin: 03/02/21 08:46 Dose: 5 mg Documented by: Apixaban (Apixaban 2.5 Mg Tablet) 2.5 mg PO BID [facility]; Protocol Ascorbic Acid (Ascorbic Acid 500 Mg Tab) 1,000 mg PO DAILY [facility] Last Admin: 03/02/21 08:46 Dose: 1,000 mg Documented by: Aspirin (Aspirin 81 Mg) 81 mg PO [facility] Last Admin: 03/01/21 21:30 Dose: 81 mg Documented by: Atenolol (Atenolol 25 Mg Tab) 25 mg PO [facility] Last Admin: 03/01/21 21:29 Dose: Not Given Documented by: Atorvastatin Calcium (Atorvastatin 20 Mg Tab) 20 mg PO [facility] Last Admin: 03/01/21 21:30 Dose: 20 mg Documented by: Cholecalciferol (Cholecalciferol 25 Mcg (1000 Iu) Tablet) 50 mcg PO DAILY [facility] Last Admin: 03/02/21 08:46 Dose: 50 mcg Documented by: Dexamethasone Sodium Phosphate (Dexamethasone Sod Phosphate 10 Mg/Ml 1 Ml Vial) 6 mg IVP DAILY [facility] Last Admin: 03/02/21 08:47 Dose: 6 mg Documented by: Guaifenesin/Dextromethorphan (Guaifenesin-Dm 100-10mg/5ml 10 Ml Cup) 10 ml PO Q8HR [facility] Stop: 03/02/21 16:16 Last Admin: 03/02/21 08:45 Dose: 10 ml Documented by: Hydralazine HCl (Hydralazine Hcl 25 Mg Tab) 25 mg PO TID PRN PRN Reason: Blood Pressure - High Ibuprofen (Ibuprofen 400 Mg Tab) 400 mg PO Q6HR PRN PRN Reason: Mild Pain or Fever > 100.5 Insulin Aspart (Insulin Aspart (Novolog) 100 Unit/Ml Vial) 0 unit SQ ACHS [facility]; Protocol Last Admin: 03/02/21 11:58 Dose: Not Given Documented by: Naloxone HCl (Naloxone 0.4 Mg/Ml 1 Ml Vial) 0.2 mg IV Q2M PRN PRN Reason: Opioid Reversal Non-Formulary Medication (Flarex 0.1% Opth Solution) 1 drop BOTH EYES TUTHSA [facility] Last Admin: 03/02/21 08:37 Dose: Not Given Documented by: Ondansetron HCl (Ondansetron 4 Mg/2 Ml Vial) 4 mg IVP Q8HR PRN PRN Reason: Nausea And Vomiting Timolol Maleate (Timolol 0.5% Ophth Drops 5 Ml Btl) 1 drops BOTH EYES DAILY [facility] Last Admin: 03/02/21 08:46 Dose: 1 drops Documented by: Zinc Sulfate (Zinc Sulfate 220 Mg Cap) 220 mg PO DAILY [facility] Last Admin: 03/02/21 08:46 Dose: 220 mg Documented by: Physical exam: GENERAL: The patient is alert and oriented x3, not in any acute distress. Well developed, well nourished. HEENT: Pupils are round and equally reacting to light. EOMI. No scleral icterus. No conjunctival pallor. Normocephalic, atraumatic. No pharyngeal erythema. No thyromegaly. CARDIOVASCULAR: S1 and S2 present. No murmurs, rubs, or gallops. -PULMONARY: Chest is clear to auscultation, no wheezing or rhonchi noted ABDOMEN: Soft, nontender, nondistended, normoactive bowel sounds. No palpable organomegaly. MUSCULOSKELETAL: No joint swelling or deformity. EXTREMITIES: No cyanosis, clubbing, or pedal edema. NEUROLOGICAL: Gross neurological examination did not reveal any focal deficits. SKIN: No rashes. no petechiae. Assessment: Acute bilateral covid 19 with pneumonia acute hypoxic respiratory failure secondary to above Increased inflammatory markers Secondary to acute COVID-19 pneumonia Mild mediastinal and hilar lymphadenopathy requiring follow up in 3 months Elevated d-dimer, ruled out PE History of coronary artery disease status post stenting Hypertension GI Prophylaxis DVT prophylaxis Full code Plan: Recommend to continue with current medication management and continuing to wean FiO2 as tolerated. Patient is currently on 4 L via nasal cannula and will provid e prescription for home oxygen and will have nursing staff perform home 02 evaluation as patient will likely Require home oxygen secondary to COVID-19 pneumonia. Continue with dexamethasone and Accu checks and will use sliding scale as needed. Encourage increased activity as tolerated and continued incentive spirometer use. Anticipate discharge in 24 hours. Objective - Vital Signs Vital signs: Vital Signs Temp 97.9 F 03/02/21 10:00 Pulse 50 L 03/02/21 10:00 Resp 16 03/02/21 10:00 BP 104/60 03/02/21 10:00 Pulse Ox 94 L 03/02/21 10:00 Intake & Output 03/01/21 03/02/21 03/02/21 18:59 06:59 18:59 Intake Total 500 300 236 Output Total 600 Balance 500 -300 236 Intake: Oral 500 300 236 Output: Urine 600 Other: Voiding Method Toilet Toilet Toilet # Voids 3 5 # Bowel Movements 1 - Labs CBC & Chem 7: 03/02/21 08:19 03/02/21 08:19 Labs: Abnormal Lab Results - Last 24 Hours (Table) 03/01/21 03/01/21 03/01/21 Range/Units 07:07 12:01 16:39 Plt Count (150-450) k/uL D-Dimer (<0.60) mg/L FEU Chloride (98-107) mmol/L BUN/Creatinine Ratio 25.84 H (12.00-20.00) Ratio Glucose (74-99) mg/dL POC Glucose (mg/dL) 110 H 126 H (75-99) mg/dL AST 55 H (13-35) U/L ALT 77 H (8-44) U/L Total Protein 5.1 L (6.2-8.2) g/dL Albumin 2.8 L (3.8-4.9) g/dL Albumin/Globulin Ratio 1.27 L (1.60-3.17) g/dL 03/01/21 03/02/21 03/02/21 Range/Units 21:25 08:19 08:19 Plt Count 490 H (150-450) k/uL D-Dimer 8.07 H (<0.60) mg/L FEU Chloride (98-107) mmol/L BUN/Creatinine Ratio (12.00-20.00) Ratio Glucose (74-99) mg/dL POC Glucose (mg/dL) 113 H (75-99) mg/dL AST (13-35) U/L ALT (8-44) U/L Total Protein (6.2-8.2) g/dL Albumin (3.8-4.9) g/dL Albumin/Globulin Ratio (1.60-3.17) g/dL 03/02/21 Range/Units 08:19 Plt Count (150-450) k/uL D-Dimer (<0.60) mg/L FEU Chloride 109 H (98-107) mmol/L BUN/Creatinine Ratio (12.00-20.00) Ratio Glucose 108 H (74-99) mg/dL POC Glucose (mg/dL) (75-99) mg/dL AST (13-35) U/L ALT (8-44) U/L Total Protein (6.2-8.2) g/dL Albumin (3.8-4.9) g/dL Albumin/Globulin Ratio (1.60-3.17) g/dL
[2021-03-02 17:01] LABS: Glucose,Whole Blood 147 mg/dL (75-99)
[2021-03-02] MEDS: atenoloL 25 MG TAB PO SCH ×2 (20:10→20:11)
[2021-03-02] MEDS: APIXABAN 2.5 MG TABLET PO SCH (20:12)
[2021-03-02] MEDS: ASPIRIN 81 MG PO SCH (20:13)
[2021-03-02] MEDS: ATORVASTATIN 20 MG TAB PO SCH (20:13)
[2021-03-02 20:16] LABS: Glucose,Whole Blood 135 mg/dL (75-99)
[2021-03-03 07:09] LABS: Glucose,Whole Blood 93 mg/dL (75-99)
[2021-03-03] MEDS: INSULIN ASPART (NovoLOG) 100 UNIT/ML VIAL SQ SCH ×2 (07:09→12:05)
[2021-03-03] MEDS: DEXAMETHASONE SOD PHOSPHATE 10 MG/ML 1 ML VIAL IVP SCH (07:40)
[2021-03-03] MEDS: amLODIPine 5 MG TAB PO SCH (07:41)
[2021-03-03] MEDS: ASCORBIC ACID 500 MG TAB PO SCH (07:41)
[2021-03-03] MEDS: APIXABAN 2.5 MG TABLET PO SCH (07:41)
[2021-03-03] MEDS: ZINC SULFATE 220 MG CAP PO SCH (07:41)
[2021-03-03] MEDS: CHOLECALCIFEROL 25 MCG (1000 IU) TABLET PO SCH (07:41)
[2021-03-03] MEDS: TIMOLOL 0.5% OPHTH DROPS 5 ML BTL BOTH EYES SCH (07:46)
[2021-03-03 10:28] VITALS: RESP 16
[2021-03-03 11:39] LABS: Glucose,Whole Blood 151 mg/dL (75-99)
--- NOTE | 2021-03-03 13:23 | P.PN ---
Subjective Progress Note Date: 03/03/21 Principal diagnosis: COVID-19 pneumonia On 03/01/2021 patient seen in follow-up on medical surgical floor, she is currently on 4 L of oxygen pulse ox is 94%. Breathing comfortably, last chest x-ray from yesterday showed airspace and interstitial infiltrates, stable in appearance, fever or chills, mild signs have been stable, she continues on Decadron 6 mg daily, Lovenox 40 mg daily, multivitamins. D-dimer is down to 8.81 on yesterday's labs, improving. Pro-calcitonin level was negative at 0.04, LDH was down to 281 from previously at 1235, and CRP is 1.6 down from 14.[address] angiogram of the chest showed no pulmonary embolism. Lower extremity Dopplers were negative for DVT On 03/02/2021 patient seen in follow-up on medical surgical floor, she is doing better today, still a bit dyspneic at rest, but no acute distress, she is on 4 L of oxygen pulse ox of 94%, she sits up in the chair, she has been ambulating in the room, tolerating activity fairly well, follow-up chest x-ray today showed bilateral airspace disease, stable in appearance. CT chest was negative for pulmonary embolism, lower extremity Dopplers were negative for DVT. Patient's d-dimer today is 8.07, she is on Lovenox 40 mg daily, patient also continues on Decadron 6 mg daily, multivitamins. White blood cell count today is 9.2, hemoglobin is 14.8, electrolytes and renal profile are unremarkable. She is tolerating oral intake, denies any acute complaints. Discharge is pending for tomorrow, we'll continue weaning FiO2 as tolerated, and we will increase activity as tolerated. On 03/03/2021 patient seen in follow-up on medical surgical floor. Patient states she is continuing to improve, she states she feels great on today's exam, no worsening dyspnea, she is breathing comfortably. She is currently on 4 L of oxygen pulse ox is 96%, her FiO2 can probably be further weaned down. Hemodynamically she is stable, she's been afebrile. No new chest x-rays today. Inflammatory markers were improved from admission. Her last d-dimer on yesterday's labs was still elevated at 8.07, but improved from admission. CTA chest and lower extremity Dopplers were negative for evidence of PE and DVT. Patient continues on Lovenox 2.5 mg twice daily. Objective - Vital Signs Vital signs: Vital Signs Temp 97.9 F 03/03/21 10: Pulse 51 L 03/03/21 10: Resp 16 03/03/21 10: BP 124/68 03/03/21 10: Pulse Ox 96 03/03/21 10: Intake & Output 03/02/21 03/03/21 03/03/21 18:59 06:59 18:59 Intake Total 708 260 236 Output Total 400 400 Balance 708 -140 -164 Intake: Oral 708 260 236 Output: Urine 400 400 Other: Voiding Method Toilet Toilet Toilet # Voids 1 2 2 - Exam GENERAL EXAM: Alert, very pleasant, 70-year-old white female, on 4 L of oxygen the pulse ox of 96% comfortable in no apparent distress. HEAD: Normocephalic/atraumatic. EYES: Normal reaction of pupils, equal size. Conjunctiva pink, sclera white. NOSE: Clear with pink turbinates. THROAT: No erythema or exudates. NECK: No masses, no JVD, no thyroid enlargement, no adenopathy. CHEST: No chest wall deformity. Symmetrical expansion. LUNGS: Equal air entry with bibasilar crackles CVS: Regular rate and rhythm, normal S1 and S2, no gallops, no murmurs, no rubs ABDOMEN: Soft, nontender. No hepatosplenomegaly, normal bowel sounds, no guarding or rigidity. EXTREMITIES: No clubbing, no edema, no cyanosis, 2+ pulses and upper and lower extremities. MUSCULOSKELETAL: Muscle strength and tone normal. SPINE: No scoliosis or deformity SKIN: No rashes CENTRAL NERVOUS SYSTEM: Alert and oriented -3. No focal deficits, tone is normal in all 4 extremities. PSYCHIATRIC: Alert and oriented -3. Appropriate affect. Intact judgment and insight. - Labs CBC & Chem 7: 03/02/21 08:19 03/02/21 08:19 Labs: Abnormal Lab Results - Last 24 Hours (Table) 03/02/21 03/02/21 03/02/21 Range/Units 08:19 17:00 20:14 POC Glucose (mg/dL) 147 H 135 H (75-99) mg/dL Lactate Dehydrogenase 307 H (120-246) U/L 03/03/21 Range/Units 11:38 POC Glucose (mg/dL) 151 H (75-99) mg/dL Lactate Dehydrogenase (120-246) U/L Assessment and Plan Plan: Assessment: #1. COVID-19 pneumonia, but symptom onset more than 3 weeks ago, patient was outside the window for Remdesivir. Patient had outpatient COVID-19 test that was positive on 02/18/2021, presented with hypoxic respiratory failure, shortness of breath and cough. She had diffuse bilateral pulmonary infiltrates, patient nevertheless had completed her COVID-19 vaccination and she has taken 2 shots of Pfizer vaccine. Patient has been treated with Decadron, prophylactic anticoagulation #2. Elevated d-dimer without CT evidence of pulmonary embolism, and no evidence of DVT on lower extremity Dopplers #3. Elevated inflammatory markers, improving #4. Shortness of breath secondary to COVID-19 pneumonia, improving #5. Cough, nonproductive #6. History of coronary artery disease #7. Hyperlipidemia on Lipitor Plan: Continue weaning FiO2 Patient remains on 4 L of oxygen and she is maintaining O2 saturations above 92%, she is breathing comfortably Obtain home oxygen assessment at rest and with ambulation Most likely patient will benefit from home oxygen if she qualifies for until full recovery from COVID-19 pneumonia Clinically she has remained stable She came to consider for discharge home today Patient can complete a total of 10 day course of Decadron 6 mg daily And we recommend Eliquis 2.5 mg twice daily for 2 weeks after discharge for prophylactic anticoagulation at home Outpatient follow-up with Dr. Dye in 3 weeks I performed a history & physical examination of the patient and discussed their management with my nurse practitioner, Mami Calvillo. I reviewed the nurse practitioner's note and agree with the documented findings and plan of care. Lung sounds are positive for diminished breath sounds throughout the lung fuller. The findings and the impression was discussed with the patient. I attest to the documentation by the nurse practitioner. Time with Patient: Less than 30
[2021-03-03 14:30] VITALS: BP 128/81; PULSE 53; TEMP 98
[2021-03-03 14:48] VITALS: BMI 34.9
--- NOTE | 2021-03-04 15:45 | P.DS ---
Providers Date of admission: 02/25/21 13:25 Expected date of discharge: 03/03/21 Attending physician: Zaid Quezada MD Consults: 02/25/21 13:21 Consult Physician Urgent Consulting Provider: Grey Dye Consult Reason/Comments: Covid pneumonia, hypoxia Do you want consulting provider notified?: Yes Primary care physician: Abigail Morales Hospital Course: Final diagnosis Acute bilateral covid 19 with pneumonia acute hypoxic respiratory failure secondary to above Increased inflammatory markers Secondary to acute COVID-19 pneumonia Mild mediastinal and hilar lymphadenopathy requiring follow up in 3 months Elevated d-dimer, ruled out PE History of coronary artery disease status post stenting Hypertension GI Prophylaxis DVT prophylaxis Full code Discharge disposition Patient is being discharged in a stable condition with guarded prognosis to home. Patient will follow-up with Dr. Morales in the outpatient setting upon discharge. Patient is to also follow-up with pulmonology Dr. Dye in the outpatient setting in 2-3 weeks. Patient will continue on dexamethasone to complete the course along with vitamin and zinc supplements. Patient will require home oxygen of 4 L via nasal cannula secondary to COVID-19. Total time taken is greater than 35 minutes. Hospital course This is a pleasant 70 years old female with past medical history of coronary artery disease status post stenting, hypertension Presents because of dyspnea and coughing. Patient states that she's been having shortness of breath since earlier of the muscle about 3 weeks ago. Last week s he started having back and she was tested positive for Covid Today her husbandis that she almost passed out during a severe bout of coughing so she came to the emergency room. She denies chest pain or abdominal pain or diarrhea. No headache or weakness. Covid vaccine Pfizer 2 shots on June and July of this year. She does not smoke or drink. No illicit drugs. On the presentation she is hypothermic 96. Hypoxic with oxygen saturation 88% on room air. Improve to 90% on 5 with oxygen Left showing mild leukocytosis of 12.2. Rest of CBC, INR, BMP liver enzymes and troponin were unremarkable. EKG showing normal sinus rhythm at [address]-T changes and QTC is 499. Chest x-ray: Bilateral infiltrates 03/03/2021 Patient is evaluated this morning currently sitting up in the chair on 4 L via nasal cannula. Patient continues to have shortness of breath with exertion and will require oxygen via 4 L nasal cannula on discharge secondary to COVID-19. Case management given a prescription and arranging for home oxygen for discharge. Patient been evaluated by pulmonary recommending close outpatient follow-up and patient will also continue on dexamethasone 6 mg daily to complete the course. Patient will also continue with vitamin and zinc supplements on discharge. Recommend obtaining a pulse oximeter and monitoring pulse ox saturations closely Currently no reports of chest pain, worsening shortness of breath, or palpitations. Patient is afebrile. No reports of nausea or vomiting and patient is tolerating diet. Patient will be discharged home today. GENERAL: The patient is alert and oriented x3, not in any acute distress. Well developed, well nourished. Continues on 4 L. HEENT: Pupils are round and equally reacting to light. EOMI. No scleral icterus. No conjunctival pallor. Normocephalic, atraumatic. No pharyngeal erythema. No thyromegaly. CARDIOVASCULAR: S1 and S2 present. No murmurs, rubs, or gallops. PULMONARY: Chest is clear to auscultation, no wheezing or crackles. ABDOMEN: Soft, nontender, nondistended, normoactive bowel sounds. No palpable organomegaly. MUSCULOSKELETAL: No joint swelling or deformity. EXTREMITIES: No cyanosis, clubbing, or pedal edema. NEUROLOGICAL: Gross neurological examination did not reveal any focal deficits. SKIN: No rashes. Please refer to medication reconciliation sheet for a list of medications. Patient Condition at Discharge: Stable Plan - Discharge Summary Discharge Rx Participant: No New Discharge Prescriptions: New Zinc Sulfate [Orazinc] 220 mg PO DAILY 30 Days #30 cap Acetaminophen Tab [Tylenol] 650 mg PO Q6HR PRN tab PRN Reason: Mild Pain Or Fever > 100.5 Apixaban [Eliquis] 2.5 mg PO BID 14 Days #28 tab Dexamethasone 6 mg PO DAILY 4 Days #4 tablet amLODIPine [Norvasc] 5 mg PO BID 30 Days #60 tab Ascorbic Acid [Vitamin C] 1,000 mg PO DAILY 30 Days #60 tab Cholecalciferol [Vitamin D3 (25 Mcg = 1000 Iu)] 50 mcg PO DAILY 30 Days #60 tablet Continue Aspirin EC [Ecotrin Low Dose] 81 mg PO HS Flarex 0.1% Opth Solution 1 drop BOTH EYES TUTHSA atenoloL [Tenormin] 25 mg PO HS Albuterol Sulfate [Albuterol Sulfate Hfa] 2 puff INHALATION QID PRN PRN Reason: Shortness Of Breath Timolol 0.5% Ophth Soln [Timoptic 0.5% Ophth Soln] 1 drop BOTH EYES DAILY Atorvastatin [Lipitor] 20 mg PO HS Discontinued atenoloL [Tenormin] 50 mg PO DAILY Discharge Medication List Albuterol Sulfate [Albuterol Sulfate Hfa] 2 puff INHALATION QID PRN 02/25/21 [History] Aspirin EC [Ecotrin Low Dose] 81 mg PO HS 02/25/21 [History] Atorvastatin [Lipitor] 20 mg PO HS 02/25/21 [History] Flarex 0.1% Opth Solution 1 drop BOTH EYES TUTHSA 02/25/21 [History] Timolol 0.5% Ophth Soln [Timoptic 0.5% Ophth Soln] 1 drop BOTH EYES DAILY 02/25/21 [History] atenoloL [Tenormin] 25 mg PO HS 02/25/21 [History] Apixaban [Eliquis] 2.5 mg PO BID 14 Days #28 tab 03/02/21 [Rx] Acetaminophen Tab [Tylenol] 650 mg PO Q6HR PRN tab 03/03/21 [Rx] Ascorbic Acid [Vitamin C] 1,000 mg PO DAILY 30 Days #60 tab 03/03/21 [Rx] Cholecalciferol [Vitamin D3 (25 Mcg = 1000 Iu)] 50 mcg PO DAILY 30 Days #60 tablet 03/03/21 [Rx] Dexamethasone 6 mg PO DAILY 4 Days #4 tablet 03/03/21 [Rx] Zinc Sulfate [Orazinc] 220 mg PO DAILY 30 Days #30 cap 03/03/21 [Rx] amLODIPine [Norvasc] 5 mg PO BID 30 Days #60 tab 03/03/21 [Rx] Follow up Appointment(s)/Referral(s): [facility] [NON-STAFF] - As Needed [facility] [NON-STAFF] - As Needed (oxygen) Abigail Morales MD [Primary Care Provider] - 1-2 days (office closed at time of discharge. Please call to schedule appointemnt ) Grey Dye MD [STAFF PHYSICIAN] - 3 Weeks (office closed at time of discharge.. Please call to schedule appointment ) Patient Instructions/Handouts: Coronavirus Disease 2019 (COVID-19), Using Oxygen at Home (DC) Activity/Diet/Wound Care/Special Instructions: activity limited until follow up follow up with primary care provider on discharge follow up pulmonary in the outpatient setting in 2-3 weeks continue medications as prescribed continue with oxygen supplementation secondary to Covid 19 encourage fluids and rest obtain pulse oximeter to monitor oxygen saturations and keep a diary of readings for pulmonary follow up continue incentive spirometer at least 10 times every hour while awake continue current diet Discharge Disposition: HOME SELF-CARE
== END 2021-03-03 17:01 | disposition home or self-care (01) | DRG 177 ==
LOC: EC 10:33 → 4SSUR 13:25
PROVIDERS: ADMIT Internal Medicine; ATTEND Internal Medicine
DX: U07.1 COVID-19 (principal); J12.82 Pneumonia due to coronavirus disease 2019; J96.01 Acute respiratory failure with hypoxia; I10 Essential (primary) hypertension; E78.5 Hyperlipidemia, unspecified; D72.810 Lymphocytopenia; I25.10 Atherosclerotic heart disease of native coronary artery without angina pectoris; Z95.5 Presence of coronary angioplasty implant and graft; Z20.822 Contact with and (suspected) exposure to COVID-19; R68.0 Hypothermia, not associated with low environmental temperature; R59.1 Generalized enlarged lymph nodes; R79.89 Other specified abnormal findings of blood chemistry; R59.0 Localized enlarged lymph nodes; H57.9 Unspecified disorder of eye and adnexa; Z79.01 Long term (current) use of anticoagulants; Z79.899 Other long term (current) drug therapy
CPT/HCPCS: 36415; 71045; 71275; 80048; 80053; 83605; 83615; 83735; 84145; 84439; 84443; 84484; 85025; 85379; 85610; 85730; 86140; 87635; 93005; 93970; 99285